=== PATIENT | female | born 1955 | race Caucasian/White ===

== ENCOUNTER 2016-07-27 07:02 | Inpatient (IN) ==
--- NOTE | 2016-07-26 20:50 | Discharge Summary ---
<Marva Gonzalez - Last Filed: 07/26/16 20:47> Date of Encounter: 07/26/16 - Discharge Diagnosis (1) Rotator cuff tear arthropathy of right shoulder Priority: Primary Status: Acute (2) DMII (diabetes mellitus, type 2) Status: Chronic Qualifiers: Diabetes mellitus complication status: with unspecified complications Diabetes mellitus senior care insulin use: unspecified roasterman insulin use status Qualified Code(s): E11.8 - Type 2 diabetes mellitus with unspecified complications (3) HTN (hypertension) Priority: Secondary Status: Chronic Qualifiers: Hypertension type: essential hypertension Qualified Code(s): I10 - Essential (primary) hypertension (4) 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 - Discharge Medications Home Medications: DiphenhydraMINE [Benadryl] 50 mg PO HS 01/25/15 [History] Ferrous Sulfate [Iron] 324 mg PO DAILY #0 01/25/15 [History] Furosemide [Lasix] 40 mg PO BID 01/25/15 [History] Insulin LISPRO [HumaLOG] 18 units SQ BID 01/25/15 [History] Insulin NPH Hum/Reg Insulin Hm [Novolin 70-30 100 Unit/ml Vial] 50 units SQ BID 01/25/15 [History] Losartan/Hydrochlorothiazide [Hyzaar 100-25 Tablet] 1 tab PO DAILY 01/25/15 [ History] Methocarbamol [Robaxin] 500 mg PO QID PRN #0 01/25/15 [History] Multivit-Min/FA/Ca Carb/Vit K [Women's 50+ Daily Tablet] 1 tab PO DAILY [History] Omeprazole [PriLOSEC] 20 mg PO DAILY 01/25/15 [History] SitaGLIPtin [Januvia] 100 mg PO DAILY 01/25/15 [History] Vitamin B Complex [B Complex] 1 tab PO DAILY 01/25/15 [History] Polyethylene Glycol 3350 [MiraLAX] 17 gm PO DAILY 04/13/16 [History] OxyCODONE Immed Rel [Roxicodone 5 MG] 5 - 10 mg PO Q6HR PRN #40 tablet 07/26/16 [Rx] Albuterol Sulfate [Proair Hfa] 2 puff IH Q4H PRN 07/27/16 [History] Atorvastatin Calcium [Lipitor] 80 mg PO DAILY 07/27/16 [History] Diclofenac Sodium [Voltaren] 1 appl TP QID PRN 07/27/16 [History] FLUoxetine HCl [Fluoxetine HCl] 80 mg PO HS 07/27/16 [History] Fluticasone Propionate Nasal [Flonase] 1 spray NS BID 07/27/16 [History] Lactulose [Enulose] 10 gm PO TID 07/27/16 [History] Montelukast [Singulair] 10 mg PO DAILY 07/27/16 [History] Promethazine HCl 12.5 - 25 mg PO Q8H PRN 07/27/16 [History] TraZODone 100 mg PO HS 07/27/16 [History] Tramadol HCl [Ultram] 50 mg PO QID PRN 07/27/16 [History] Allergies/Adverse Reactions: Allergies adhesive tape Allergy (Verified 01/07/16 08:59) Rash etodolac Allergy (Verified 04/13/16 11:44) Rash Primary care physician: Ritika Mensah CNP - Patient Status Disposition: Home, Self-Care Condition: Good - Discharge Instructions Follow Up With: Deo Paniagua MD [Partnered Physician] - 08/25/16 10:10 am Marva Gonzalez PAC [Physician Medical Transcription Supervisor] - 08/07/16 10:15 am Brittny Kumar MD [Partnered Physician] - 05/27/17 12:15 pm Ritika Mensah CNP [Primary Care Provider] - 11/17/16 11:20 am - Hospital Course Hospital course: Ms. 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 (3) DMII (diabetes mellitus, type 2) Priority: Secondary Status: Chronic Qualifiers: Diabetes mellitus complication status: with unspecified complications Diabetes mellitus roasterman insulin use: unspecified roasterman insulin use status Qualified Code(s): E11.8 - Type 2 diabetes mellitus with unspecified complications (4) Anemia Priority: Secondary Status: Chronic Qualifiers: Anemia type: unspecified type Qualified Code(s): D64.9 - Anemia, unspecified Primary care physician: Ritika Mensah CNP - Patient Status Functional capacity at discharge: independent ambulation Overall status at discharge: patient is progressing back to baseline - Hospital Course Hospital course: Ms. Krishnamurthy is a 60 year old female The patient had an uneventful postoperative course. They received antibiotics and physical therapy and were discharged in stable condition. There will follow -up in the office in 2 weeks. - Time Spent with Patient Total time spent providing and/or coordinating discharge services:
[2016-07-27] MEDS ORDERED: *HR* Midazolam HCl 2 MG/2 ML VIAL ONE (07:19)
[2016-07-27] MEDS ORDERED: *HR* FentaNYL (PF) 100 MCG/2 ML VIAL ONE (07:19)
[2016-07-27] MEDS ORDERED: *HR* Propofol 200 MG/20 ML VIAL IVP ONE (07:19)
[2016-07-27] MEDS ORDERED: Lidocaine -MPF 2% 2 ML VIAL ONE (07:20)
[2016-07-27] MEDS ORDERED: *HR* Succinylcholine 200 MG/10 ML VIAL IVP ONE (07:20)
[2016-07-27] MEDS ORDERED: Lidocaine 1% 20 ML MDV ID ONE (07:38)
[2016-07-27] MEDS ORDERED: CeFAZolin Pre 2,000 MG/100 ML 2,000 MG/100 ML BAG IVPB ONE (07:38)
[2016-07-27] MEDS ORDERED: Ringers Solution, Lactated 1,000 ML IVC SCH ×2 (07:45→11:24)
--- NOTE | 2016-07-27 07:45 | Anesthesia Evaluation PreOp ---
Date of Encounter: 07/27/16 Time of Encounter: 07:42 - Past History Planned Operation: left total shoulder replacement Cardiac History: HTN, Hyperlipidemia Pulmonary History: Denies Any Significant HX (non smoker) CARD BOXER History: Other (depression) Other Medical History: Diabetes Type II, Other (anemia, dysphaia. Patient denies any kidney problems.) Anesthesia History: No Prior Anesthetic Complications, Past Anesthesia (MOJGAN, appy, sinus surgery, c/s x2, Left shoulder scope, EGD with banding) : No Alcohol Use: none Drug use: none Medications and Allergies Celecoxib [Celebrex] 100 mg PO BID #0 01/25/15 [History] DiphenhydraMINE [Benadryl] 25 mg PO HS 01/25/15 [History] Duloxetine [Cymbalta] 60 mg PO HS 01/25/15 [History] Ferrous Sulfate [Iron] 325 mg PO DAILY #0 01/25/15 [History] Fluocinolone Acetonide Oil [Dermotic] 5 drop BOTH EARS BID #0 01/25/15 [History ] Furosemide [Lasix] 40 mg PO DAILY 01/25/15 [History] Gabapentin [Neurontin] 300 mg PO TID 01/25/15 [History] Insulin LISPRO [HumaLOG] 18 units SQ TIDWM 01/25/15 [History] Insulin NPH Hum/Reg Insulin Hm [Novolin 70-30 100 Unit/ml Vial] 55 units SQ BID 01/25/15 [History] Loratadine [Claritin] 10 mg PO DAILY 01/25/15 [History] Losartan/Hydrochlorothiazide [Hyzaar 100-25 Tablet] 1 tab PO DAILY 01/25/15 [ History] Metformin [Glucophage] 1,000 mg PO BIDWM 01/25/15 [History] Methocarbamol [Robaxin] 500 mg PO QID #0 01/25/15 [History] Multivit-Min/FA/Ca Carb/Vit K [Women's 50+ Daily Tablet] 1 tab PO DAILY [History] Omeprazole [PriLOSEC] 20 mg PO DAILY 01/25/15 [History] SitaGLIPtin [Januvia] 100 mg PO DAILY 01/25/15 [History] Vitamin B Complex [B Complex] 1 tab PO DAILY 01/25/15 [History] Polyethylene Glycol 3350 [MiraLAX] 17 gm PO DAILY 04/13/16 [History] OxyCODONE Immed Rel [Roxicodone 5 MG] 5 - 10 mg PO Q6HR PRN #40 tablet 07/26/16 [Rx] Allergies adhesive tape Allergy (Verified 01/07/16 08:59) Rash etodolac Allergy (Verified 04/13/16 11:44) Rash - Meds/Allergy Pre-op Review Medications Reviewed: Yes Allergies Reviewed: Yes Beta Blockers on Current Med List: No Anesthesia Results - Labs Laboratory Tests 07/20/16 07/20/16 07/20/16 12:12 12:12 12:12 Hgb 10.5 L Hct 32.2 L Plt Count 63 L PT 13.0 H APTT 32.2 Sodium 134 L Potassium 4.4 BUN 21 H Creatinine 0.85 Hemoglobin A1c 07/20/16 12:12 Hgb Hct Plt Count PT APTT Sodium Potassium BUN Creatinine Hemoglobin A1c 6.9 H - Imaging EKG: report reviewed (LAD, NSR) Additional studies: Negative stress test, EF 70% Anesthesia Exam Selected Entries 07/27/16 07:26 Temperature 98.0 F Pulse Rate 85 Respiratory Rate 18 Blood Pressure 137/76 O2 Sat by Pulse Oximetry 97 Height: 66in Weight: 216lbs NPO (# of Hours): 8 Pain Scale: 2 Pain Scale Used: Numeric (1 - 10) - HEENT Pupil (Motor): EOMI Mallampati: III Teeth: Poor dentition (some missing molars, overbite) Oral Opening: Greater than 3 - CARD BOXER LOC: Oriented CARD BOXER Motor: Normal RUE, Normal LUE, Normal RLE, Normal LLE, Normal Face CARD BOXER Sensory: Normal: RUE, LUE, RLE, LLE, Face - Cardiac Rhythm: Regular Murmur: None - Pulmonary Breath Sounds: bilateral Clear Respiratory Effort: Symmetrical Anesthesia Assess/Plan ASA Score: 2 Modified Orange Scale for Level of Consciousness: Cooperative, oriented, and tranquil Anesthetic Plan: General Monitoring Plan: Standard Monitors Recovery Plan: PACU (Discussed risks of GA and block, questions answered and agrees to proceed.)
--- NOTE | 2016-07-27 07:53 | History & Physical Report ---
Date of Encounter: 07/27/16 Time of Encounter: 07:53 24 Hour HP Update - Instructions Instructions: If the History and Physical is less than 30 days old and was completed prior to A.M. admission and or procedure and has NOT been updated on calendar day of procedure please complete this update prior to performing procedure. - Update Patient reports changes in Medical Condition: No Changes in assessment/condition: No Changes in Medication: No Preop tests/diagnostics Reviewed: Yes Surgery Remains Indicated: Yes Consent for Planned Operative Procedure(s) Verified: Yes - Pre-Operative Checklist Preoperative Checklist Indicated: No Prophylactic Antibiotic Ordered: Yes Is VTE Prophylaxis Indicated?: Yes
[2016-07-27] MEDS ORDERED: Albuterol 2.5 MG/3 ML NEBULIZER ONE (07:58)
[2016-07-27] MEDS ORDERED: Bupivacaine-MPF 0.25% 10 ML VIAL ONE (08:19)
--- NOTE | 2016-07-27 08:53 | Anesthesia Procedures ---
Date of Encounter: 07/27/16 Time of Encounter: 08:51 Procedures: Anesthesia - Nerve Block Procedure Date: 07/27/16 Time: 08:51 Allergies/Adv Reactions: adhesive tape Allergy (Verified 01/07/16 08:59) Rash etodolac Allergy (Verified 04/13/16 11:44) Rash Pre-op Diagnosis: right rotaotr cuff arthropathy Surgical Procedure: right shoulder reverse ball Checklist: Correct Patient Identifier, Correct procedure, History checked Correct side: Right Blood Thinner: No Monitor Applied: EKG, BP, Pulse Oximetry Supplemental Oxygen via Nasal Cannula (L/min): 2 Sedation: Versed (mg): 2 Sedation: Fentanyl (mcg): 100 Indication: Post Op Analgesia Pre-op Neuro Deficits: No Block Type: Supraclavicular Catheter placed: No Sterile Technique: Yes Ultrasound used: Yes Anatomy identified: Yes Visual spread of Local: Yes Neuro Stimulation: No Smooth Injection of Local: Yes Prep: Chlorhexadine Needle: 22 x 50 mm Stimuplex Local: Other (0.25% bupivicaine) Volume (cc): 30 Number of Attempts: 1 Complications: None/effective block Vitals: Vital Signs/O2 Sat, Most Current Temp Pulse Resp BP Pulse Ox 98.0 F 79 18 121/61 98 07/27/16 07:26 07/27/16 08:45 07/27/16 07:26 07/27/16 08:45 07/27/16 08:45 Comments: peripheral nerve block with ultrasound for postop pain per dr kee request
[2016-07-27] MEDS ORDERED: *HR* HYDROmorphone (PF) 1 MG/ML SYRINGE IVP PRN ×2 (08:54→11:24)
[2016-07-27] MEDS ORDERED: *HR* Labetalol 100 MG/20 ML MDV IVP PRN (08:54)
[2016-07-27] MEDS ORDERED: *HR* Phenylephrine 10 MG/ML VIAL ONE (09:11)
--- NOTE | 2016-07-27 09:41 | Orthopedic Operative Note ---
Date of procedure: 07/27/16 Pre-op diagnosis: Right cuff tear arthropathy Post-op diagnosis: same Procedure: Procedure: Right Total Shoulder Replacment Reverse, biceps tenodesis Estimated blood loss: 100 cc Hardware:Arthrex small glenoid baseplate, 2 4.5 screws. 1 6.5 screw, 36 lateral glenosphere, 6 humeral stem, poly insert 3 and 12 metal Exam Under anesthesia: Full motion no instability Procedural Notes: Irreparable tear supraspinatus tendon, grade 3 arthritic changes humeral head Operative procedure: The patient was brought to the operating room and placed on the operating room table. After general anesthesia was administered the operative shoulder was examined. Findings were noted. The patient was placed in the modified beachchair position. All pressure points were padded appropriately. And the head was stabilized in the neutral position. The operative extremity was prepped and draped in the sterile surgical fashion. The patient received IV antibiotics prior to skin incision. A standard deltopectoral approach was made to the operative shoulder. Incision was made to the skin and subcutaneous tissue,hemo stasis was obtained with Bovie cautery. Using careful blunt dissection the cephalic vein was identified and mobilized medially. The deltopectoral interval was developed and the clavipectoral fascia was incised. The subscap was released off the lesser tuberosity and tagged with #2 FiberWire suture. The humerus was dislocated patient noted to have irreparable tear supraspinatus tendon patient also noted to have grade 3 arthritic changes humeral head, and the humeral cut was made along the anatomic neck. Anterior and posterior Bankart retractors were placed to expose the glenoid. The glenoid guide was seated and the centering hole was made. It was reamed with the appropriate reamer. Small baseplate was seated and secured with (2) 4.5 screws and one 6.5 screw. The baseplate was irrigated and dried and the 36 lateral Glenosphere was seated and secured with the Rodriguez taper. The Rodriguez taper was tested and found to be secure the humerus was redislocated and prepared with the diaphyseal reamers, followed by a broaching process up to the appropriate size 6 in the patient's anatomic version. The metaphyseal reamer was then utilized. Trial reduction found the shoulder to be relocatable. Trial components were removed and drill holes were placed in the lesser tuberosity. They were filled with #5 FiberWire suture incorporating the biceps tendon. These sutures were used for a subscap repair and a biceps tenodesis. The appropriate 6 stem was impacted in place in the patient's anatomic version. Trial reduction found the shoulder to be relocatable and stable with the 12 metal 3 Eladia Trial component was removed and the 12 metal 3 Eladia was seated and secured the shoulder was reduced. The shoulder had excellent motion and excellent stability and no evidence of dislocation. The deep tissue was irrigated with pulse irrigation. The subscap was repaired incorporating the biceps tendon for biceps tenodesis and a subscap repair. The deltopectoral interval was closed with a running #1 PDS suture, subcutaneous tissue was irrigated and closed with 0 PDS suture, the skin was closed with Dermabond. The patient was placed in a sterile dressing, abduction brace and extubated. The patient was then transferred to the recovery room in stable condition. Anesthesia: ION Surgeon: Deo Paniagua Agile Qa Tester: Marva Gonzalez Condition: stable Disposition: PACU
[2016-07-27] MEDS ORDERED: *HR* Promethazine 25 MG/ML VIAL IVP PRN (10:28)
[2016-07-27 10:32] LABS: Hematocrit 32.6 % (35.3-44.9); Hemoglobin 10.3 g/dL (11.5-15.4)
--- NOTE | 2016-07-27 11:19 | Anesthesia Evaluation Post Op ---
Date of Encounter: 07/27/16 Time of Encounter: 10:59 - Vital Signs Vital Signs: vss - Lungs Lungs: Clear Ascult./Percussion - Airway Airway: Non-obstructed - Cardiovascular Baseline Rhythm - Mental Status Mental Status: Asleep with brisk response to light stimulation - Pain Pain Scale used: Lou (Faces) - Nausea Vomiting Nausea Vomiting: Not Present - Hydration Hydration: Ice chips - Discharge PostOp Status: Transfer Patient to floor
[2016-07-27] MEDS ORDERED: traMADol 50 MG TABLET PO PRN (11:24)
[2016-07-27] MEDS ORDERED: Dextrose Gel 15 GM PO PRN ×2 (11:24)
[2016-07-27] MEDS ORDERED: D5% in Water 1,000 ML IV PRN (11:24)
[2016-07-27] MEDS ORDERED: Sennosides 8.6 MG TABLET PO PRN (11:24)
[2016-07-27] MEDS ORDERED: Temazepam 15 MG CAPSULE PO PRN (11:24)
[2016-07-27] MEDS ORDERED: (Diclofenac Sodium [Voltaren] 1 APPL) TP PRN (11:24)
[2016-07-27] MEDS ORDERED: Naloxone 0.4 MG/ML INJ IVP PRN (11:24)
[2016-07-27] MEDS ORDERED: Methocarbamol 500 MG TABLET PO PRN (11:24)
[2016-07-27] MEDS ORDERED: *HR* Dextrose 50 % in Water (Syg) 50 ML SYRINGE IVP PRN (11:24)
[2016-07-27] MEDS ORDERED: MOM Conc 10 ML UD.LIQ PO PRN (11:24)
[2016-07-27] MEDS ORDERED: Ondansetron 4 MG/2 ML VIAL IVP PRN (11:24)
[2016-07-27] MEDS ORDERED: *HR* OxyCODONE Immed Rel 5 MG TABLET PO PRN (11:24)
[2016-07-27] MEDS: Insulin LISPRO 300 UNITS/3 ML VIAL SQ SCH ×2 (11:41→17:28)
[2016-07-27] MEDS: Acetaminophen 325 MG TABLET PO PRN (13:34)
[2016-07-27] MEDS: Lactulose Oral Soln 20 GM/30 ML UDC PO SCH ×2 (14:38→20:01)
[2016-07-27] MEDS: Furosemide 40 MG TABLET PO SCH (17:14)
[2016-07-27] MEDS: *HR* Enoxaparin 30 MG/0.3 ML SYRINGE SQ SCH (17:14)
[2016-07-27] MEDS: ceFAZolin 2,000 MG in D5% in Water 100 ML IVPB SCH (17:16)
[2016-07-27] MEDS ORDERED: *HR* Enoxaparin 30 MG/0.3 ML SYRINGE SQ SCH (18:00)
[2016-07-27] MEDS: Fluticasone Propionate Nasal 50 MCG/SPRAY BOTTLE NS SCH (20:10)
[2016-07-27] MEDS ORDERED: traZODone 50 MG TABLET PO SCH (21:00)
[2016-07-27] MEDS ORDERED: FLUoxetine 20 MG CAPSULE PO SCH (21:00)
[2016-07-28] MEDS: Insulin LISPRO 300 UNITS/3 ML VIAL SQ SCH ×4 (00:04→12:14)
[2016-07-28] MEDS: Insulin NPH/REG 70/30 100 UNIT/ML (x5UNIT) SQ SCH ×2 (00:04→11:05)
[2016-07-28] MEDS: ceFAZolin 2,000 MG in D5% in Water 100 ML IVPB SCH (00:05)
[2016-07-28] MEDS: *HR* OxyCODONE Immed Rel 5 MG TABLET PO PRN ×4 (02:24→14:37)
[2016-07-28 03:34] LABS: Hematocrit 29.1 % (35.3-44.9); Hemoglobin 9.4 g/dL (11.5-15.4)
[2016-07-28] MEDS: *HR* Enoxaparin 30 MG/0.3 ML SYRINGE SQ SCH (05:56)
--- NOTE | 2016-07-28 06:28 | Orthopedics Progress Note ---
Date of Encounter: 07/28/16 Time of Encounter: 06:28 - Assessment and Plan (1) Rotator cuff tear arthropathy of right shoulder Current Visit: Yes Status: Acute (2) Allergy to adhesive Current Visit: Yes Status: Chronic (3) DMII (diabetes mellitus, type 2) Current Visit: Yes Status: Chronic Qualifiers: Diabetes mellitus complication status: with unspecified complications Diabetes mellitus senior care insulin use: unspecified whiting machine operator insulin use status Qualified Code(s): E11.8 - Type 2 diabetes mellitus with unspecified complications (4) Anemia Current Visit: No Status: Chronic Qualifiers: Anemia type: unspecified type Qualified Code(s): D64.9 - Anemia, unspecified Subjective Interval history: Patient was seen this morning doing well without complaints. Afebrile vital signs stable. Operative extremity: Neurovascularly intact Dressing clean dry and intact Calves nontender Assessment and plan: Continue with postoperative care Hematocrit 29 discharged today Objective Vital signs: Vital Signs Temp Pulse Resp BP Pulse Ox 07/28/16 03:53 98.9 F 91 18 125/65 96 07/28/16 00:00 99.2 F 96 18 127/64 95 07/27/16 19:57 99.9 F H 91 19 132/69 93 L 07/27/16 17:49 16 99 07/27/16 15:50 97.9 F 81 16 132/77 99 07/27/16 15:06 76 15 117/68 96 07/27/16 14:15 98.0 F 76 15 117/68 96 07/27/16 13:41 98.6 F 80 16 128/68 99 07/27/16 13:15 98.7 F 80 16 127/70 99 07/27/16 12:15 98.1 F 82 14 132/62 97 07/27/16 11:45 98.2 F 84 14 121/66 94 L 07/27/16 11:14 98.0 F 84 14 106/64 93 L 07/27/16 10:56 98.8 F 82 16 115/62 95 07/27/16 10:46 82 16 119/61 95 07/27/16 10:36 82 20 119/60 94 L 07/27/16 10:26 98.6 F 83 20 110/62 94 L 07/27/16 10:16 83 20 123/64 99 07/27/16 10:06 84 20 126/69 99 07/27/16 09:56 98.6 F 92 20 158/71 96 07/27/16 08:45 79 121/61 98 07/27/16 08:35 80 129/69 99 07/27/16 07:26 98.0 F 85 18 137/76 97 Intake and Output 07/27/16 07/27/16 07/28/16 15:59 23:59 07:59 Intake Total 100 / 100 100 / 100 1100 / 1100 Output Total 4952 / 4952 400 / 400 500 / 500 Balance -4852 / -4852 -300 / -300 600 / 600 Intake: IV Fluids 100 / 100 100 / 100 1100 / 1100 Lactated Ringers 1,000 ML 1000 / 1000 @ 75 mls/hr IVC .[id number] JOSI Rx#:[id number] Ancef 2,000 MG In 100 / 100 100 / 100 Dextrose 5% 100 ML @ 200 mls/hr IVPB Q8H JOSI Rx#: [id number] Ancef Premix 2,000 MG/100 100 / 100 ML 2,000 mg In 100 ml @ 200 mls/hr IVPB PREOP ONE Rx#:[id number] Oral 0 / 0 Output: Urine 4852 / 4852 400 / 400 500 / 500 Estimated Blood Loss 100 / 100 Other: Stool Size Small Stool Consistency formed Stool Color Brown # Voids 1 Blood Glucose* 183 274 - Labs CBC & BMP: 07/28/16 03:13 Labs: Abnormal lab results Hgb 9.4 g/dL (11.5-15.4) L 07/28/16 03:13 Hct 29.1 % (35.3-44.9) L 07/28/16 03:13 POC Glucose 183 (58-89) H 07/27/16 11:29 - VTE Documentation of Mechanical Device: Venous foot pump, device Consult Discharge Plan - Plan Referrals: Deo Paniagua MD [Partnered Physician] - 08/25/16 10:10 am Marva Gonzalez, PAC [Physician Development Executive] - 08/07/16 10:15 am Brittny Kumar MD [Partnered Physician] - 05/27/17 12:15 pm Ritika Mensah, [employer] TE[employer]ER [Primary Care Provider] - 11/17/16 11:20 am
[2016-07-28] MEDS: Furosemide 40 MG TABLET PO SCH (08:49)
[2016-07-28] MEDS: Lactulose Oral Soln 20 GM/30 ML UDC PO SCH ×2 (08:49→14:37)
[2016-07-28] MEDS: Fluticasone Propionate Nasal 50 MCG/SPRAY BOTTLE NS SCH (08:51)
[2016-07-28] MEDS ORDERED: *HR* SitaGLIPtin 100 MG TABLET PO SCH (09:00)
[2016-07-28] MEDS ORDERED: Vitamin B Complex/Vit C/Vit E 1 EACH TABLET PO SCH (09:00)
[2016-07-28] MEDS ORDERED: Losartan/HCTZ 50-12.5 TABLET PO SCH (09:00)
[2016-07-28] MEDS ORDERED: Multivit/Ca/Min/Fe/FA 1 TAB TABLET PO SCH (09:00)
[2016-07-28] MEDS: Acetaminophen 325 MG TABLET PO PRN (10:43)
[2016-07-28 15:46] VITALS: BP 126/71
== END 2016-07-28 16:14 | disposition home or self-care (01) | DRG 483 ==
LOC: SAMDAY 07:02 → 3NENU 10:59
PROVIDERS: ADMIT Orthopaedic Surgery; ATTEND Orthopaedic Surgery

== ENCOUNTER 2020-01-21 14:36 | Inpatient (IN) ==
[2020-01-21 15:20] LABS: Basophils % 0.1 %; Eosinophils % 0.1 %; Hematocrit 33.7 % (35.3-44.9); Immature Granulocytes % 0.4 % (0-4); Lymphocytes # 0.4 K/mcL (0.6-4.6); Lymphocytes % 3.6 %; Mean Corpuscular HGB Conc 32.6 g/dL (31.6-35.5); Mean Corpuscular Hemoglobin 27.9 pg (28.0-33.3); Mean Platelet Volume 11.1 fL (9.4-12.4); Monocytes # 0.7 K/mcL (0.0-1.3); Neutrophils # 8.9 K/mcL (1.6-8.9); Platelet Count 147 K/mcL (140-400); Red Blood Count 3.94 M/mcL (3.82-4.97); Red Cell Distribution Width 14.7 % (11.5-14.5); Segmented Neutrophils % 88.8 %
[2020-01-21 15:21] LABS: Mean Corpuscular Volume 85.5 fL (83.0-100.0)
[2020-01-21] MEDS ORDERED: Ondansetron 4 MG/2 ML VIAL IVP ONE (15:26)
[2020-01-21 15:37] LABS: INR 1.3; Prothrombin Time 14.9 Seconds (9.4-12.1)
[2020-01-21 15:47] LABS: Alanine Aminotransferase 15 Units/L (7-52); Albumin 3.7 g/dL (3.5-5.7); Albumin/Globulin Ratio 1.3 (1.1-2.2); Alkaline Phosphatase 109 Units/L (34-104); Aspartate Amino Transferase 24 Units/L (13-39); BUN/Creatinine Ratio 45 (6-26); Bilirubin,Direct 0.6 mg/dL (0.0-0.2); Bilirubin,Indirect 1.1 mg/dL (0.0-1.0); Bilirubin,Total 1.7 mg/dL (0.3-1.0); Blood Urea Nitrogen 41 mg/dL (8-23); Calcium 9.4 mg/dL (8.6-10.3); Carbon Dioxide 20 mEq/L (23-29); Chloride 101 mEq/L (98-107); Globulin 2.9 g/dL (2.4-3.5); Glucose 285 mg/dL (70-105); Lipase 159 Units/L (11-82); Osmolality,Calculated 296 (280-300); Potassium 4.7 mEq/L (3.5-5.1); Sodium 133 mEq/L (136-145); Total Protein 6.6 g/dL (6.4-8.9); Troponin I 0.36 ng/mL (< 0.04); eGFR For African Americans > 60 (> 60); eGFR For Non-African Americans > 60 (> 60)
[2020-01-21 16:06] LABS: Bacteria,Urine Few per hpf (None-Few); Bilirubin,Urine Negative (Negative); Blood,Urine Small (Negative); Clarity,Urine Turbid (Clear); Color,Urine Yellow (Yellow); Glucose,Urine (UA) Normal (Normal); Hyaline Casts,Urine Few per lpf (None Seen); Ketones,Urine Negative (Negative); Leukocyte Esterase,Urine Small (Negative); Mucus,Urine Few per lpf (None-Few); Nitrite,Urine Negative (Negative); PH,Urine 6.5 pH Units (5.0-8.0); Protein,Urine 200 mg/dL (Neg-Trace); RBC,Urine 0-3 per hpf (0-3); Specific Gravity,Urine 1.021 (1.010-1.025); Squamous Epithelial Cell,Urine Few per hpf (None-Few)
[2020-01-21] MEDS ORDERED: Aspirin 325 MG TABLET PO ONE (16:54)
[2020-01-21] MEDS ORDERED: Piperacillin/Tazobactam 3.375 GM in Water for inj. (sterile) 20 ML IVP ONE (16:54)
[2020-01-21] MEDS ORDERED: Naloxone 0.4 MG/ML INJ IVP PRN (17:09)
[2020-01-21] MEDS ORDERED: Isovue-370 500 ML BOTTLE IVP ONE (17:14)
[2020-01-21] MEDS ORDERED: Perflutren Lipid Microsphere 1.3 ML in 0.9 % Sodium Chloride 8.7 ML IVP PRN (17:15)
[2020-01-21] MEDS ORDERED: Piperacillin/Tazobactam 3.375 GM in 0.9 % Sodium Chloride Mini Bag 100 ML IVP ONE (18:40)
[2020-01-21] MEDS: Lactulose Oral Soln 20 GM/30 ML UDC PO SCH (20:43)
[2020-01-21] MEDS ORDERED: Dextrose Gel 15 GM/37.5 ML TUBE PO PRN ×2 (21:23)
[2020-01-21] MEDS ORDERED: *HR* Dextrose 50 % in Water (Vial) 50 ML VIAL IVP PRN (21:23)
[2020-01-21] MEDS ORDERED: D5% in Water 1,000 ML IVC PRN (21:23)
[2020-01-21] MEDS ORDERED: *HR* Heparin 5,000 UNIT/ML VIAL IVP PRN (21:25)
[2020-01-21] MEDS ORDERED: *HR* Heparin 5,000 UNIT/ML VIAL IVP ONE (21:25)
[2020-01-21] MEDS: Insulin LISPRO 300 UNITS/3 ML VIAL SQ SCH (23:03)
[2020-01-21] MEDS: Heparin 25,000UNIT/250ML 1/2NS 25,000 UNIT/250 ML IV.SOLN IVC SCH (23:03)
[2020-01-21] MEDS: Acetaminophen 325 MG TABLET PO PRN (23:09)
[2020-01-22 04:46] LABS: Basophils % 0.1 %; Eosinophils % 0.1 %; Hematocrit 30.2 % (35.3-44.9); Hemoglobin 9.6 g/dL (11.5-15.4); Immature Granulocytes % 0.5 % (0-4); Lymphocytes # 0.5 K/mcL (0.6-4.6); Lymphocytes % 4.8 %; Mean Corpuscular HGB Conc 31.8 g/dL (31.6-35.5); Mean Corpuscular Hemoglobin 27.2 pg (28.0-33.3); Mean Corpuscular Volume 85.6 fL (83.0-100.0); Mean Platelet Volume 11.1 fL (9.4-12.4); Monocytes % 10.3 %; Neutrophils # 8.2 K/mcL (1.6-8.9); Platelet Count 138 K/mcL (140-400); Red Blood Count 3.53 M/mcL (3.82-4.97); Red Cell Distribution Width 14.8 % (11.5-14.5); Segmented Neutrophils % 84.2 %; White Blood Count 9.8 K/mcL (4.3-11.1)
[2020-01-22 05:04] LABS: BUN/Creatinine Ratio 38 (6-26); Blood Urea Nitrogen 33 mg/dL (8-23); Calcium 8.8 mg/dL (8.6-10.3); Carbon Dioxide 20 mEq/L (23-29); Chloride 105 mEq/L (98-107); Glucose 209 mg/dL (70-105); Osmolality,Calculated 293 (280-300); Potassium 4.5 mEq/L (3.5-5.1); Sodium 135 mEq/L (136-145); eGFR For African Americans > 60 (> 60); eGFR For Non-African Americans > 60 (> 60)
[2020-01-22 07:52] LABS: Estimated Average Glucose 134 mg/dl
[2020-01-22] MEDS: Lactulose Oral Soln 20 GM/30 ML UDC PO SCH ×2 (08:01→23:49)
[2020-01-22] MEDS: cefTRIAXone 1,000 MG in Water for inj. (sterile) 10 ML IVP SCH (08:01)
[2020-01-22] MEDS: Aspirin Enteric Coated 81 MG Tablet PO SCH (08:01)
[2020-01-22] MEDS: Insulin LISPRO 300 UNITS/3 ML VIAL SQ SCH ×4 (08:23→23:49)
[2020-01-22] MEDS: *HR* Heparin 5,000 UNIT/ML VIAL IVP PRN (11:52)
[2020-01-22] MEDS: Heparin 25,000UNIT/250ML 1/2NS 25,000 UNIT/250 ML IV.SOLN IVC SCH (18:39)
[2020-01-22] MEDS: Acetaminophen 325 MG TABLET PO PRN (23:49)
[2020-01-23] MEDS: *HR* Heparin 5,000 UNIT/ML VIAL IVP PRN (00:42)
[2020-01-23 00:52] LABS: Basophils % 0.1 %; Hematocrit 28.8 % (35.3-44.9); Hemoglobin 9.1 g/dL (11.5-15.4); Immature Granulocytes % 0.8 % (0-4); Lymphocytes # 0.5 K/mcL (0.6-4.6); Lymphocytes % 4.5 %; Mean Corpuscular HGB Conc 31.6 g/dL (31.6-35.5); Mean Corpuscular Hemoglobin 27.3 pg (28.0-33.3); Mean Corpuscular Volume 86.5 fL (83.0-100.0); Mean Platelet Volume 11.1 fL (9.4-12.4); Monocytes # 1.2 K/mcL (0.0-1.3); Neutrophils # 8.5 K/mcL (1.6-8.9); Platelet Count 131 K/mcL (140-400); Red Blood Count 3.33 M/mcL (3.82-4.97); Red Cell Distribution Width 15.2 % (11.5-14.5); Segmented Neutrophils % 82.6 %; White Blood Count 10.3 K/mcL (4.3-11.1)
[2020-01-23 01:11] LABS: BUN/Creatinine Ratio 40 (6-26); Blood Urea Nitrogen 40 mg/dL (8-23); Calcium 8.6 mg/dL (8.6-10.3); Carbon Dioxide 19 mEq/L (23-29); Chloride 103 mEq/L (98-107); Glucose 304 mg/dL (70-105); Osmolality,Calculated 297 (280-300); Potassium 4.7 mEq/L (3.5-5.1); Sodium 133 mEq/L (136-145); eGFR For African Americans > 60 (> 60); eGFR For Non-African Americans 55 (> 60)
[2020-01-23] MEDS: Vancomycin 1,250 MG/262.5 ML IV.SOLN IVPB SCH (01:55)
[2020-01-23] MEDS: Lactulose Oral Soln 20 GM/30 ML UDC PO SCH ×2 (08:07→20:05)
[2020-01-23] MEDS: Aspirin Enteric Coated 81 MG Tablet PO SCH (08:11)
[2020-01-23] MEDS: Insulin LISPRO 300 UNITS/3 ML VIAL SQ SCH ×3 (08:11→16:11)
[2020-01-23] MEDS: cefTRIAXone 1,000 MG in Water for inj. (sterile) 10 ML IVP SCH (08:11)
[2020-01-23] MEDS: Ondansetron ODT 4 MG TAB.RAPDIS SL PRN ×2 (11:41→20:01)
[2020-01-23 12:11] LABS: Acinetobacter baumannii by PCR Not Detected (Not Detect); Candida albicans by PCR Not Detected (Not Detect); Candida glabrata by PCR Not Detected (Not Detect); Candida krusei by PCR Not Detected (Not Detect); Candida parapsilosis by PCR Not Detected (Not Detect); Candida tropicalis by PCR Not Detected (Not Detect); Enterobacter cloacae Cmplx PCR Not Detected (Not Detect); Enterobacteriaceae by PCR Not Detected (Not Detect); Enterococcus by PCR Not Detected (Not Detect); Escherichia coli by PCR Not Detected (Not Detect); Klebsiella oxytoca by PCR Not Detected (Not Detect); Klebsiella pneumoniae by PCR Not Detected (Not Detect); Proteus by PCR Not Detected (Not Detect); Pseudomonas aeruginosa by PCR Not Detected (Not Detect); Serratia marcescens by PCR Not Detected (Not Detect); Staphylococcus aureus by PCR Not Detected (Not Detect); Staphylococcus by PCR Not Detected (Not Detect); Streptococcus agalactiae(B)PCR Not Detected (Not Detect); Streptococcus by PCR Not Detected (Not Detect); Streptococcus pneumoniae PCR Not Detected (Not Detect); Streptococcus pyogenes (A) PCR Not Detected (Not Detect)
[2020-01-23] MEDS ORDERED: Insulin LISPRO 300 UNITS/3 ML VIAL SQ STA (13:16)
[2020-01-23] MEDS: Heparin 25,000UNIT/250ML 1/2NS 25,000 UNIT/250 ML IV.SOLN IVC SCH (13:26)
[2020-01-23] MEDS ORDERED: Insulin LISPRO 300 UNITS/3 ML VIAL SQ SCH (13:34)
[2020-01-23] MEDS ORDERED: Insulin DETEMIR 100 UNIT/ML X5UNITS SQ ONE (13:34)
[2020-01-23] MEDS ORDERED: *HR* Midazolam HCl 5 MG/5 ML VIAL IVP PRN (14:08)
[2020-01-23] MEDS ORDERED: *HR* FentaNYL (PF) 100 MCG/2 ML VIAL IVP PRN (14:08)
[2020-01-23] MEDS ORDERED: Lidocaine Viscous Oral Soln 15 ML SOLUTION MM PRN (14:08)
[2020-01-23] MEDS ORDERED: 0.9 % Sodium Chloride 500 ML IVC ONE (14:08)
[2020-01-23] MEDS ORDERED: Insulin Human Regular 10 UNIT in 0.9 % Sodium Chloride 10 ML IV ONE (17:23)
[2020-01-23] MEDS ORDERED: LACTULOSE PO PRN (17:26)
[2020-01-23 18:07] LABS: VBG HCO3 22 mEq/L (21-27); VBG PCO2 39 mmHg (41-51); VBG PH 7.35 pH Units (7.32-7.42); VBG PO2 87 mmHg (25-50)
[2020-01-23 18:30] LABS: BUN/Creatinine Ratio 64 (6-26); Blood Urea Nitrogen 64 mg/dL (8-23); Calcium 8.6 mg/dL (8.6-10.3); Carbon Dioxide 19 mEq/L (23-29); Chloride 102 mEq/L (98-107); Glucose 381 mg/dL (70-105); Osmolality,Calculated 304 (280-300); Potassium 4.7 mEq/L (3.5-5.1); Sodium 130 mEq/L (136-145); eGFR For African Americans > 60 (> 60); eGFR For Non-African Americans 55 (> 60)
[2020-01-23] MEDS: Furosemide 40 MG TABLET PO SCH (18:45)
[2020-01-23] MEDS ORDERED: Insulin LISPRO 300 UNITS/3 ML VIAL SQ ONE (19:29)
[2020-01-23] MEDS: 0.9 % Sodium Chloride 1,000 ML IVC SCH (20:03)
[2020-01-23] MEDS: traZODone 50 MG TABLET PO SCH (20:04)
[2020-01-23] MEDS: Insulin DETEMIR 100 UNIT/ML X5UNITS SQ SCH (20:05)
[2020-01-24] MEDS: Simethicone 80 MG TAB.CHEW PO PRN (02:58)
[2020-01-24] MEDS: Vancomycin 1,250 MG/262.5 ML IV.SOLN IVPB SCH (02:59)
[2020-01-24] MEDS: Ondansetron ODT 4 MG TAB.RAPDIS SL PRN ×2 (04:27→12:32)
[2020-01-24 06:35] LABS: Calcium 7.9 mg/dL (8.6-10.3); Potassium 4.1 mEq/L (3.5-5.1)
[2020-01-24 06:45] LABS: Hematocrit 20.3 % (35.3-44.9); Hemoglobin 6.4 g/dL (11.5-15.4); Mean Corpuscular HGB Conc 31.5 g/dL (31.6-35.5); Mean Corpuscular Hemoglobin 27.2 pg (28.0-33.3); Mean Corpuscular Volume 86.4 fL (83.0-100.0); Mean Platelet Volume 10.7 fL (9.4-12.4); Platelet Count 130 K/mcL (140-400); Red Blood Count 2.35 M/mcL (3.82-4.97); Red Cell Distribution Width 15.4 % (11.5-14.5)
[2020-01-24] MEDS ORDERED: Insulin LISPRO 300 UNITS/3 ML VIAL SQ SCH (08:00)
[2020-01-24] MEDS ORDERED: 0.9 % Sodium Chloride 250 ML IVC SCH (08:45)
[2020-01-24] MEDS: Acetaminophen 325 MG TABLET PO PRN (08:47)
[2020-01-24] MEDS: Lactulose Oral Soln 20 GM/30 ML UDC PO SCH ×2 (08:47→22:51)
[2020-01-24] MEDS: Furosemide 40 MG TABLET PO SCH ×2 (08:48→17:23)
[2020-01-24] MEDS: FLUoxetine 20 MG CAPSULE PO SCH (08:48)
[2020-01-24] MEDS: Aspirin Enteric Coated 81 MG Tablet PO SCH (08:49)
[2020-01-24] MEDS: cefTRIAXone 1,000 MG in Water for inj. (sterile) 10 ML IVP SCH (08:49)
[2020-01-24] MEDS: Loratadine 10 MG TABLET PO SCH (08:49)
[2020-01-24] MEDS: Insulin LISPRO 300 UNITS/3 ML VIAL SQ SCH ×4 (08:50→18:33)
[2020-01-24 09:06] LABS: Basophils % 0.1 %; Eosinophils % 0.1 %; Hematocrit 20.6 % (35.3-44.9); Hemoglobin 6.8 g/dL (11.5-15.4); Immature Granulocytes % 1.1 % (0-4); Lymphocytes % 7.2 %; Mean Corpuscular Hemoglobin 28.6 pg (28.0-33.3); Mean Corpuscular Volume 86.6 fL (83.0-100.0); Mean Platelet Volume 11.3 fL (9.4-12.4); Monocytes # 1.4 K/mcL (0.0-1.3); Monocytes % 10.3 %; Neutrophils # 11.4 K/mcL (1.6-8.9); Nucleated Red Blood Cells 0.1 /100 WBC (0); Platelet Count 133 K/mcL (140-400); Red Blood Count 2.38 M/mcL (3.82-4.97); Red Cell Distribution Width 15.4 % (11.5-14.5); Segmented Neutrophils % 81.2 %
[2020-01-24] MEDS: Fluticasone Propionate Nasal 50 MCG/SPRAY BOTTLE NS SCH (09:06)
[2020-01-24] MEDS ORDERED: 0.9 % Sodium Chloride 250 ML ONE (09:44)
[2020-01-24] MEDS: 0.9 % Sodium Chloride 1,000 ML IVC SCH ×3 (10:55→17:33)
[2020-01-24] MEDS ORDERED: Pantoprazole 40 MG VIAL IVP ONE (11:33)
[2020-01-24] MEDS: Octreotide 400 MCG in 0.9 % Sodium Chloride 100 ML IVC SCH ×2 (12:36→22:51)
[2020-01-24 12:54] LABS: Basophils % 0.1 %; Eosinophils % 0.1 %; Hematocrit 22.7 % (35.3-44.9); Hemoglobin 7.3 g/dL (11.5-15.4); Lymphocytes # 0.7 K/mcL (0.6-4.6); Lymphocytes % 6.2 %; Mean Corpuscular HGB Conc 32.2 g/dL (31.6-35.5); Mean Corpuscular Hemoglobin 28.5 pg (28.0-33.3); Mean Corpuscular Volume 88.7 fL (83.0-100.0); Monocytes # 1.2 K/mcL (0.0-1.3); Monocytes % 10.7 %; Neutrophils # 9.4 K/mcL (1.6-8.9); Platelet Count 120 K/mcL (140-400); Red Blood Count 2.56 M/mcL (3.82-4.97); Red Cell Distribution Width 15.1 % (11.5-14.5); Segmented Neutrophils % 81.9 %; White Blood Count 11.5 K/mcL (4.3-11.1)
[2020-01-24] MEDS: Pantoprazole 40 MG VIAL IVP SCH (17:23)
[2020-01-24 19:13] LABS: Basophils % 0.2 %; Eosinophils % 0.1 %; Hematocrit 26.7 % (35.3-44.9); Hemoglobin 8.7 g/dL (11.5-15.4); Immature Granulocytes % 1.3 % (0-4); Lymphocytes # 0.8 K/mcL (0.6-4.6); Lymphocytes % 5.5 %; Mean Corpuscular HGB Conc 32.6 g/dL (31.6-35.5); Mean Corpuscular Hemoglobin 28.6 pg (28.0-33.3); Mean Corpuscular Volume 87.8 fL (83.0-100.0); Mean Platelet Volume 11.6 fL (9.4-12.4); Monocytes # 1.2 K/mcL (0.0-1.3); Monocytes % 8.4 %; Neutrophils # 11.7 K/mcL (1.6-8.9); Nucleated Red Blood Cells 0.1 /100 WBC (0); Platelet Count 130 K/mcL (140-400); Red Blood Count 3.04 M/mcL (3.82-4.97); Red Cell Distribution Width 15.2 % (11.5-14.5); Segmented Neutrophils % 84.5 %; White Blood Count 13.9 K/mcL (4.3-11.1)
[2020-01-24] MEDS: traZODone 50 MG TABLET PO SCH (20:54)
[2020-01-24] MEDS: Insulin DETEMIR 100 UNIT/ML X5UNITS SQ SCH (20:54)
[2020-01-25] MEDS: Insulin LISPRO 300 UNITS/3 ML VIAL SQ SCH ×4 (00:40→17:23)
[2020-01-25] MEDS ORDERED: Vancomycin 1,500 MG/265 ML IV.SOLN IVPB SCH (03:00)
[2020-01-25] MEDS: 0.9 % Sodium Chloride 1,000 ML IVC SCH ×3 (03:15→20:09)
[2020-01-25] MEDS: Pantoprazole 40 MG VIAL IVP SCH (05:37)
[2020-01-25] MEDS: Octreotide 400 MCG in 0.9 % Sodium Chloride 100 ML IVC SCH (05:44)
[2020-01-25 07:15] LABS: Basophils % 0.1 %
[2020-01-25 07:17] LABS: Eosinophils % 0.1 %; Hematocrit 25.5 % (35.3-44.9); Immature Granulocytes % 1.7 % (0-4); Immature Platelets 5.7 % (1.1-6.1); Lymphocytes # 0.5 K/mcL (0.6-4.6); Lymphocytes % 5.5 %; Mean Corpuscular HGB Conc 31.4 g/dL (31.6-35.5); Mean Corpuscular Volume 89.2 fL (83.0-100.0); Mean Platelet Volume 11.5 fL (9.4-12.4); Monocytes # 0.7 K/mcL (0.0-1.3); Monocytes % 7.2 %; Neutrophils # 8.2 K/mcL (1.6-8.9); Platelet Count 106 K/mcL (140-400); Red Blood Count 2.86 M/mcL (3.82-4.97); Red Cell Distribution Width 15.4 % (11.5-14.5); Segmented Neutrophils % 85.4 %; White Blood Count 9.6 K/mcL (4.3-11.1)
[2020-01-25 07:34] LABS: Potassium 4.4 mEq/L (3.5-5.1)
[2020-01-25] MEDS ORDERED: Erythromycin Lactobionate 250 MG in 0.9 % Sodium Chloride 100 ML IVPB ONE (08:00)
[2020-01-25] MEDS: Loratadine 10 MG TABLET PO SCH (08:44)
[2020-01-25] MEDS: Furosemide 40 MG TABLET PO SCH ×2 (08:44→17:22)
[2020-01-25] MEDS: FLUoxetine 20 MG CAPSULE PO SCH (08:44)
[2020-01-25] MEDS: Aspirin Enteric Coated 81 MG Tablet PO SCH (08:44)
[2020-01-25] MEDS: Lactulose Oral Soln 20 GM/30 ML UDC PO SCH ×2 (08:45→20:09)
[2020-01-25] MEDS: Fluticasone Propionate Nasal 50 MCG/SPRAY BOTTLE NS SCH (09:43)
[2020-01-25] MEDS ORDERED: *HR* Propofol 500 MG/50 ML BOTTLE IVP ONE (10:55)
[2020-01-25] MEDS ORDERED: Lidocaine -MPF 2% 5 ML VIAL SQ ONE (10:55)
[2020-01-25 11:45] LABS: Homocysteine 13 umol/L (<=10)
[2020-01-25 12:04] LABS: ANA IgG by ELISA NONE DETECTED (None Detected)
[2020-01-25] MEDS: lisinopriL 5 MG TABLET PO SCH (12:54)
[2020-01-25] MEDS: Isosorbide MONOnitrate (24 HR) 30 MG TAB.ER.24H PO SCH (12:54)
[2020-01-25] MEDS: Fluconazole 100 MG TABLET PO SCH (13:03)
[2020-01-25] MEDS: Amoxicillin 500 MG CAPSULE PO SCH (20:08)
[2020-01-25] MEDS: traZODone 50 MG TABLET PO SCH (20:09)
[2020-01-25] MEDS: Acetaminophen 325 MG TABLET PO PRN (20:13)
[2020-01-25] MEDS: Insulin DETEMIR 100 UNIT/ML X5UNITS SQ SCH (23:35)
[2020-01-26] MEDS: Insulin LISPRO 300 UNITS/3 ML VIAL SQ SCH ×5 (02:11→22:50)
[2020-01-26] MEDS: 0.9 % Sodium Chloride 1,000 ML IVC SCH (06:22)
[2020-01-26] MEDS: Isosorbide MONOnitrate (24 HR) 30 MG TAB.ER.24H PO SCH (07:22)
[2020-01-26] MEDS: Aspirin Enteric Coated 81 MG Tablet PO SCH (07:22)
[2020-01-26] MEDS: Fluconazole 100 MG TABLET PO SCH (07:22)
[2020-01-26] MEDS: Amoxicillin 500 MG CAPSULE PO SCH ×3 (07:22→22:49)
[2020-01-26] MEDS: Loratadine 10 MG TABLET PO SCH (07:22)
[2020-01-26] MEDS: FLUoxetine 20 MG CAPSULE PO SCH (07:22)
[2020-01-26] MEDS: Lactulose Oral Soln 20 GM/30 ML UDC PO SCH ×2 (07:23→22:50)
[2020-01-26] MEDS: Fluticasone Propionate Nasal 50 MCG/SPRAY BOTTLE NS SCH (07:24)
[2020-01-26] MEDS ORDERED: Pantoprazole 40 MG VIAL IVP SCH (09:00)
[2020-01-26 09:10] LABS: Basophils % 0.2 %; Eosinophils # 0.1 K/mcL (0.0-0.6); Eosinophils % 0.5 %; Hematocrit 28.2 % (35.3-44.9); Hemoglobin 8.7 g/dL (11.5-15.4); Immature Granulocytes % 1.5 % (0-4); Lymphocytes # 0.7 K/mcL (0.6-4.6); Lymphocytes % 6.8 %; Mean Corpuscular HGB Conc 30.9 g/dL (31.6-35.5); Mean Corpuscular Hemoglobin 28.2 pg (28.0-33.3); Mean Corpuscular Volume 91.6 fL (83.0-100.0); Mean Platelet Volume 11.3 fL (9.4-12.4); Monocytes # 0.8 K/mcL (0.0-1.3); Monocytes % 7.4 %; Neutrophils # 8.4 K/mcL (1.6-8.9); Platelet Count 143 K/mcL (140-400); Red Blood Count 3.08 M/mcL (3.82-4.97); Red Cell Distribution Width 16.1 % (11.5-14.5); Segmented Neutrophils % 83.6 %; White Blood Count 10.1 K/mcL (4.3-11.1)
[2020-01-26 09:55] LABS: Calcium 7.9 mg/dL (8.6-10.3); Potassium 4.1 mEq/L (3.5-5.1)
[2020-01-26] MEDS: Sodium Bicarbonate 75 MEQ in 0.45 % Sodium Chloride 1,000 ML IVC SCH (12:38)
[2020-01-26 14:21] LABS: Bilirubin,Urine Negative (Negative); Blood,Urine Negative (Negative); Clarity,Urine Clear (Clear); Color,Urine Light-Yellow (Yellow); Glucose,Urine (UA) Normal (Normal); Ketones,Urine Negative (Negative); Leukocyte Esterase,Urine Trace (Negative); Mucus,Urine Few per lpf (None-Few); Nitrite,Urine Negative (Negative); Protein,Urine Negative (Neg-Trace); RBC,Urine 0-3 per hpf (0-3); Specific Gravity,Urine 1.017 (1.010-1.025); Squamous Epithelial Cell,Urine Moderate per hpf (None-Few); Urobilinogen,Urine Normal (Normal); WBC,Urine 0-3 per hpf (0-3)
[2020-01-26 14:30] LABS: Protein/Creatinine Ratio,Urine 0.16 mg/mg (0.00-0.20); Sodium, Urine 27.3 mEq/L
[2020-01-26] MEDS: Vancomycin 1,500 MG/265 ML IV.SOLN IVPB SCH (16:06)
[2020-01-26] MEDS: traZODone 50 MG TABLET PO SCH (22:50)
[2020-01-26] MEDS: Ondansetron ODT 4 MG TAB.RAPDIS SL PRN (23:14)
[2020-01-26] MEDS: Insulin DETEMIR 100 UNIT/ML X5UNITS SQ SCH (23:14)
[2020-01-27] MEDS: Sodium Bicarbonate 75 MEQ in 0.45 % Sodium Chloride 1,000 ML IVC SCH ×4 (01:11→18:51)
[2020-01-27 04:37] LABS: Basophils % 0.1 %; Eosinophils # 0.1 K/mcL (0.0-0.6); Hemoglobin 7.8 g/dL (11.5-15.4); Immature Granulocytes % 1.2 % (0-4); Lymphocytes # 0.5 K/mcL (0.6-4.6); Lymphocytes % 7.2 %; Mean Corpuscular HGB Conc 31.2 g/dL (31.6-35.5); Mean Corpuscular Hemoglobin 28.2 pg (28.0-33.3); Mean Corpuscular Volume 90.3 fL (83.0-100.0); Mean Platelet Volume 11.7 fL (9.4-12.4); Monocytes # 0.8 K/mcL (0.0-1.3); Monocytes % 11.5 %; Neutrophils # 5.8 K/mcL (1.6-8.9); Platelet Count 111 K/mcL (140-400); Red Blood Count 2.77 M/mcL (3.82-4.97); Red Cell Distribution Width 16.3 % (11.5-14.5); White Blood Count 7.3 K/mcL (4.3-11.1)
[2020-01-27 04:56] LABS: BUN/Creatinine Ratio 50 (6-26); Blood Urea Nitrogen 50 mg/dL (8-23); Calcium 7.3 mg/dL (8.6-10.3); Carbon Dioxide 19 mEq/L (23-29); Chloride 111 mEq/L (98-107); Glucose 244 mg/dL (70-105); Osmolality,Calculated 305 (280-300); Potassium 4.4 mEq/L (3.5-5.1); Sodium 137 mEq/L (136-145); eGFR For African Americans > 60 (> 60); eGFR For Non-African Americans 55 (> 60)
[2020-01-27] MEDS: Isosorbide MONOnitrate (24 HR) 30 MG TAB.ER.24H PO SCH (09:09)
[2020-01-27] MEDS: Lactulose Oral Soln 20 GM/30 ML UDC PO SCH ×2 (09:09→22:29)
[2020-01-27] MEDS: Loratadine 10 MG TABLET PO SCH (09:09)
[2020-01-27] MEDS: Ondansetron ODT 4 MG TAB.RAPDIS SL PRN ×2 (09:10→22:29)
[2020-01-27] MEDS: Amoxicillin 500 MG CAPSULE PO SCH ×3 (09:10→22:29)
[2020-01-27] MEDS: Aspirin Enteric Coated 81 MG Tablet PO SCH (09:10)
[2020-01-27] MEDS: FLUoxetine 20 MG CAPSULE PO SCH (09:10)
[2020-01-27] MEDS: Fluconazole 100 MG TABLET PO SCH (09:11)
[2020-01-27] MEDS: Insulin LISPRO 300 UNITS/3 ML VIAL SQ SCH ×4 (09:13→22:30)
[2020-01-27] MEDS: Fluticasone Propionate Nasal 50 MCG/SPRAY BOTTLE NS SCH (09:36)
[2020-01-27 15:18] LABS: Hemoglobin 8.5 g/dL (11.5-15.4)
[2020-01-27] MEDS: Vancomycin 1,500 MG/265 ML IV.SOLN IVPB SCH (16:38)
[2020-01-27] MEDS: traZODone 50 MG TABLET PO SCH (22:29)
[2020-01-27] MEDS: Insulin DETEMIR 100 UNIT/ML X5UNITS SQ SCH (22:30)
[2020-01-28] MEDS: Sodium Bicarbonate 75 MEQ in 0.45 % Sodium Chloride 1,000 ML IVC SCH (04:19)
[2020-01-28 05:08] LABS: Basophils % 0.1 %
[2020-01-28 05:10] LABS: Eosinophils # 0.1 K/mcL (0.0-0.6); Eosinophils % 1.1 %; Hematocrit 24.5 % (35.3-44.9); Hemoglobin 7.7 g/dL (11.5-15.4); Immature Granulocytes % 1.1 % (0-4); Lymphocytes # 0.6 K/mcL (0.6-4.6); Lymphocytes % 8.3 %; Mean Corpuscular HGB Conc 31.4 g/dL (31.6-35.5); Mean Corpuscular Hemoglobin 29.1 pg (28.0-33.3); Mean Corpuscular Volume 92.5 fL (83.0-100.0); Mean Platelet Volume 11.9 fL (9.4-12.4); Monocytes # 0.8 K/mcL (0.0-1.3); Monocytes % 10.9 %; Neutrophils # 5.5 K/mcL (1.6-8.9); Platelet Count 106 K/mcL (140-400); Red Blood Count 2.65 M/mcL (3.82-4.97); Red Cell Distribution Width 16.5 % (11.5-14.5); Segmented Neutrophils % 78.5 %
[2020-01-28 05:29] LABS: BUN/Creatinine Ratio 45 (6-26); Blood Urea Nitrogen 42 mg/dL (8-23); Carbon Dioxide 17 mEq/L (23-29); Chloride 108 mEq/L (98-107); Glucose 286 mg/dL (70-105); Osmolality,Calculated 299 (280-300); Potassium 3.9 mEq/L (3.5-5.1); Sodium 134 mEq/L (136-145); eGFR For African Americans > 60 (> 60); eGFR For Non-African Americans > 60 (> 60)
[2020-01-28] MEDS: *HR* Heparin 5,000 UNIT/ML VIAL SQ SCH ×2 (06:18→16:53)
[2020-01-28] MEDS: Simethicone 80 MG TAB.CHEW PO PRN ×2 (06:19→22:59)
[2020-01-28] MEDS: Vancomycin 1,250 MG/262.5 ML IV.SOLN IVPB SCH (07:32)
[2020-01-28] MEDS: Octreotide 400 MCG in 0.9 % Sodium Chloride 100 ML IVC SCH (07:33)
[2020-01-28] MEDS: Lactulose Oral Soln 20 GM/30 ML UDC PO SCH ×2 (07:52→22:47)
[2020-01-28] MEDS: Insulin LISPRO 300 UNITS/3 ML VIAL SQ SCH ×5 (07:52→22:48)
[2020-01-28] MEDS: Fluticasone Propionate Nasal 50 MCG/SPRAY BOTTLE NS SCH (07:52)
[2020-01-28] MEDS: Isosorbide MONOnitrate (24 HR) 30 MG TAB.ER.24H PO SCH (07:52)
[2020-01-28] MEDS: FLUoxetine 20 MG CAPSULE PO SCH (07:53)
[2020-01-28] MEDS: Fluconazole 100 MG TABLET PO SCH (07:53)
[2020-01-28] MEDS: Aspirin Enteric Coated 81 MG Tablet PO SCH (07:53)
[2020-01-28] MEDS: Loratadine 10 MG TABLET PO SCH (07:53)
[2020-01-28] MEDS: Amoxicillin 500 MG CAPSULE PO SCH ×3 (07:53→22:47)
[2020-01-28] MEDS: Vancomycin 1,500 MG/265 ML IV.SOLN IVPB SCH (14:02)
[2020-01-28] MEDS: Acetaminophen 325 MG TABLET PO PRN (14:09)
[2020-01-28 14:50] LABS: Hematocrit 25.9 % (35.3-44.9); Hemoglobin 8.1 g/dL (11.5-15.4)
[2020-01-28] MEDS: traZODone 50 MG TABLET PO SCH (22:47)
[2020-01-28] MEDS: Ondansetron ODT 4 MG TAB.RAPDIS SL PRN (22:47)
[2020-01-28] MEDS: Insulin DETEMIR 100 UNIT/ML X5UNITS SQ SCH (22:48)
[2020-01-29] MEDS: *HR* Heparin 5,000 UNIT/ML VIAL SQ SCH ×2 (05:18→16:36)
[2020-01-29] MEDS: Insulin LISPRO 300 UNITS/3 ML VIAL SQ SCH ×7 (08:14→22:09)
[2020-01-29] MEDS: Fluticasone Propionate Nasal 50 MCG/SPRAY BOTTLE NS SCH (08:14)
[2020-01-29] MEDS: Amoxicillin 500 MG CAPSULE PO SCH ×2 (08:15→16:36)
[2020-01-29] MEDS: Loratadine 10 MG TABLET PO SCH (08:15)
[2020-01-29] MEDS: Fluconazole 100 MG TABLET PO SCH (08:15)
[2020-01-29] MEDS: Lactulose Oral Soln 20 GM/30 ML UDC PO SCH ×2 (08:16→21:59)
[2020-01-29] MEDS: Aspirin Enteric Coated 81 MG Tablet PO SCH (08:16)
[2020-01-29] MEDS: FLUoxetine 20 MG CAPSULE PO SCH (08:16)
[2020-01-29] MEDS: Isosorbide MONOnitrate (24 HR) 30 MG TAB.ER.24H PO SCH (08:16)
[2020-01-29] MEDS: Ondansetron ODT 4 MG TAB.RAPDIS SL PRN ×2 (08:33→22:00)
[2020-01-29] MEDS: lisinopriL 5 MG TABLET PO SCH (08:44)
[2020-01-29 10:17] LABS: Basophils % 0.2 %; Eosinophils # 0.1 K/mcL (0.0-0.6); Eosinophils % 1.2 %; Hematocrit 29.3 % (35.3-44.9); Hemoglobin 9.3 g/dL (11.5-15.4); Immature Granulocytes % 1.2 % (0-4); Lymphocytes # 0.6 K/mcL (0.6-4.6); Lymphocytes % 7.3 %; Mean Corpuscular HGB Conc 31.7 g/dL (31.6-35.5); Mean Corpuscular Hemoglobin 28.9 pg (28.0-33.3); Monocytes # 0.7 K/mcL (0.0-1.3); Monocytes % 8.7 %; Neutrophils # 6.7 K/mcL (1.6-8.9); Platelet Count 104 K/mcL (140-400); Red Blood Count 3.22 M/mcL (3.82-4.97); Red Cell Distribution Width 17.2 % (11.5-14.5); Segmented Neutrophils % 81.4 %; White Blood Count 8.2 K/mcL (4.3-11.1)
[2020-01-29 10:27] LABS: BUN/Creatinine Ratio 42 (6-26); Blood Urea Nitrogen 43 mg/dL (8-23); Calcium 7.8 mg/dL (8.6-10.3); Carbon Dioxide 19 mEq/L (23-29); Chloride 107 mEq/L (98-107); Glucose 264 mg/dL (70-105); Osmolality,Calculated 296 (280-300); Potassium 4.2 mEq/L (3.5-5.1); Sodium 133 mEq/L (136-145); eGFR For African Americans > 60 (> 60); eGFR For Non-African Americans 54 (> 60)
[2020-01-29] MEDS ORDERED: Albumin 25% 25gram/100mL 25 GM/100 ML IV.SOLN IVPB ONE (15:52)
[2020-01-29] MEDS: Vancomycin 1,500 MG/265 ML IV.SOLN IVPB SCH (16:36)
[2020-01-29] MEDS: Simethicone 80 MG TAB.CHEW PO PRN (21:59)
[2020-01-29] MEDS: Acetaminophen 325 MG TABLET PO PRN (21:59)
[2020-01-29] MEDS: Insulin DETEMIR 100 UNIT/ML X5UNITS SQ SCH (21:59)
[2020-01-29] MEDS: traZODone 50 MG TABLET PO SCH (22:00)
[2020-01-30 02:12] LABS: Mean Corpuscular HGB Conc 31.3 g/dL (31.6-35.5)
[2020-01-30 02:14] LABS: Basophils % 0.1 %; Eosinophils # 0.1 K/mcL (0.0-0.6); Eosinophils % 0.9 %; Hematocrit 23.3 % (35.3-44.9); Hemoglobin 7.3 g/dL (11.5-15.4); Immature Granulocytes % 0.7 % (0-4); Immature Platelets 5.8 % (1.1-6.1); Lymphocytes # 0.6 K/mcL (0.6-4.6); Lymphocytes % 8.7 %; Mean Corpuscular Volume 89.3 fL (83.0-100.0); Monocytes # 0.7 K/mcL (0.0-1.3); Monocytes % 9.6 %; Neutrophils # 5.6 K/mcL (1.6-8.9); Red Blood Count 2.61 M/mcL (3.82-4.97)
[2020-01-30 02:20] LABS: Platelet Count 96 K/mcL (140-400)
[2020-01-30 02:33] LABS: BUN/Creatinine Ratio 40 (6-26); Blood Urea Nitrogen 41 mg/dL (8-23); Calcium 7.9 mg/dL (8.6-10.3); Carbon Dioxide 20 mEq/L (23-29); Chloride 109 mEq/L (98-107); Glucose 171 mg/dL (70-105); Osmolality,Calculated 294 (280-300); Potassium 4.4 mEq/L (3.5-5.1); Sodium 135 mEq/L (136-145); eGFR For African Americans > 60 (> 60); eGFR For Non-African Americans 54 (> 60)
[2020-01-30 03:02] LABS: Anisocytosis 1+ (Not Present); Microcytosis Present (Not Present); Platelet Estimate Slight Decrease (Normal)
[2020-01-30] MEDS: *HR* Heparin 5,000 UNIT/ML VIAL SQ SCH ×2 (06:13→16:38)
[2020-01-30] MEDS: Aspirin Enteric Coated 81 MG Tablet PO SCH (08:47)
[2020-01-30] MEDS: Isosorbide MONOnitrate (24 HR) 30 MG TAB.ER.24H PO SCH (08:47)
[2020-01-30] MEDS: FLUoxetine 20 MG CAPSULE PO SCH (08:47)
[2020-01-30] MEDS: Fluconazole 100 MG TABLET PO SCH (08:48)
[2020-01-30] MEDS: lisinopriL 5 MG TABLET PO SCH (08:48)
[2020-01-30] MEDS: Loratadine 10 MG TABLET PO SCH (08:49)
[2020-01-30] MEDS: Fluticasone Propionate Nasal 50 MCG/SPRAY BOTTLE NS SCH (08:49)
[2020-01-30] MEDS: Lactulose Oral Soln 20 GM/30 ML UDC PO SCH ×2 (08:49→22:20)
[2020-01-30] MEDS: Insulin LISPRO 300 UNITS/3 ML VIAL SQ SCH ×7 (08:57→22:20)
[2020-01-30] MEDS ORDERED: 0.9 % Sodium Chloride 250 ML ONE (09:06)
[2020-01-30] MEDS: Vancomycin 1,500 MG/265 ML IV.SOLN IVPB SCH (14:34)
[2020-01-30 14:55] LABS: Hematocrit 26.2 % (35.3-44.9); Hemoglobin 8.2 g/dL (11.5-15.4)
[2020-01-30] MEDS: Acetaminophen 325 MG TABLET PO PRN (16:23)
[2020-01-30] MEDS: Ondansetron ODT 4 MG TAB.RAPDIS SL PRN (22:19)
[2020-01-30] MEDS: Simethicone 80 MG TAB.CHEW PO PRN (22:19)
[2020-01-30] MEDS: Insulin DETEMIR 100 UNIT/ML X5UNITS SQ SCH (22:20)
[2020-01-30] MEDS: traZODone 50 MG TABLET PO SCH (22:20)
[2020-01-31 03:22] LABS: Basophils % 0.3 %; Eosinophils % 0.6 %; Hematocrit 25.8 % (35.3-44.9); Hemoglobin 8.2 g/dL (11.5-15.4); Immature Granulocytes % 0.7 % (0-4); Immature Platelets 6.3 % (1.1-6.1); Lymphocytes # 0.5 K/mcL (0.6-4.6); Lymphocytes % 7.1 %; Mean Corpuscular HGB Conc 31.8 g/dL (31.6-35.5); Mean Corpuscular Hemoglobin 28.2 pg (28.0-33.3); Mean Corpuscular Volume 88.7 fL (83.0-100.0); Mean Platelet Volume 12.4 fL (9.4-12.4); Monocytes # 0.7 K/mcL (0.0-1.3); Monocytes % 10.1 %; Neutrophils # 5.7 K/mcL (1.6-8.9); Red Blood Count 2.91 M/mcL (3.82-4.97); Red Cell Distribution Width 16.6 % (11.5-14.5); Segmented Neutrophils % 81.2 %
[2020-01-31 03:26] LABS: Platelet Count 98 K/mcL (140-400)
[2020-01-31 03:36] LABS: BUN/Creatinine Ratio 40 (6-26); Blood Urea Nitrogen 39 mg/dL (8-23); Calcium 8.2 mg/dL (8.6-10.3); Carbon Dioxide 20 mEq/L (23-29); Chloride 110 mEq/L (98-107); Glucose 151 mg/dL (70-105); Osmolality,Calculated 294 (280-300); Potassium 4.3 mEq/L (3.5-5.1); Sodium 136 mEq/L (136-145); eGFR For African Americans > 60 (> 60); eGFR For Non-African Americans 57 (> 60)
[2020-01-31] MEDS: *HR* Heparin 5,000 UNIT/ML VIAL SQ SCH ×2 (06:14→18:28)
[2020-01-31] MEDS: Isosorbide MONOnitrate (24 HR) 30 MG TAB.ER.24H PO SCH (08:31)
[2020-01-31] MEDS: Lactulose Oral Soln 20 GM/30 ML UDC PO SCH ×2 (08:31→20:35)
[2020-01-31] MEDS: lisinopriL 5 MG TABLET PO SCH (08:33)
[2020-01-31] MEDS: Aspirin Enteric Coated 81 MG Tablet PO SCH (08:33)
[2020-01-31] MEDS: Fluconazole 100 MG TABLET PO SCH (08:33)
[2020-01-31] MEDS: Loratadine 10 MG TABLET PO SCH (08:33)
[2020-01-31] MEDS: FLUoxetine 20 MG CAPSULE PO SCH (08:33)
[2020-01-31] MEDS: Acetaminophen 325 MG TABLET PO PRN (08:38)
[2020-01-31] MEDS: Insulin LISPRO 300 UNITS/3 ML VIAL SQ SCH ×7 (08:39→20:34)
[2020-01-31] MEDS: Fluticasone Propionate Nasal 50 MCG/SPRAY BOTTLE NS SCH (08:43)
[2020-01-31] MEDS: Vancomycin 1,500 MG/265 ML IV.SOLN IVPB SCH (15:12)
[2020-01-31] MEDS ORDERED: SODIUM CHLORIDE/NAHCO3/KCL/PEG 4,000 ML SOLN.RECON PO ONE (17:00)
[2020-01-31] MEDS ORDERED: Ibuprofen 400 MG TABLET PO ONE (17:46)
[2020-01-31 19:26] LABS: Adenovirus Not Detected (Not Detect); Coronavirus 229E Not Detected (Not Detect); Coronavirus HKU1 Not Detected (Not Detect); Coronavirus NL63 Not Detected (Not Detect); Coronavirus OC43 Not Detected (Not Detect)
[2020-01-31 19:28] LABS: Bordetella Pertussis Not Detected (Not Detect); Chlamydophila pneumoniae Not Detected (Not Detect); Human Metapneumovirus Not Detected (Not Detect); Human Rhinovirus/Enterovirus Not Detected (Not Detect); Influenza A Subtype 2009 H1 Not Detected (Not Detect); Influenza B Not Detected (Not Detect); Mycoplasma pneumoniae Not Detected (Not Detect); Parainfluenza Virus 1 Not Detected (Not Detect); Parainfluenza Virus 2 Not Detected (Not Detect); Parainfluenza Virus 3 Not Detected (Not Detect); Parainfluenza Virus 4 Not Detected (Not Detect); Respiratory Syncytial Virus Not Detected (Not Detect)
[2020-01-31] MEDS: Insulin DETEMIR 100 UNIT/ML X5UNITS SQ SCH (20:35)
[2020-01-31] MEDS: traZODone 50 MG TABLET PO SCH (20:35)
[2020-02-01] MEDS: Acetaminophen 325 MG TABLET PO PRN ×2 (04:26→21:33)
[2020-02-01] MEDS: *HR* Heparin 5,000 UNIT/ML VIAL SQ SCH ×2 (05:09→16:58)
[2020-02-01 05:45] LABS: Basophils % 0.3 %; Eosinophils % 1.1 %; Immature Granulocytes % 0.5 % (0-4); Mean Platelet Volume 11.7 fL (9.4-12.4); Red Blood Count 3.23 M/mcL (3.82-4.97)
[2020-02-01 05:47] LABS: Eosinophils # 0.1 K/mcL (0.0-0.6); Hematocrit 30.1 % (35.3-44.9); Hemoglobin 9.3 g/dL (11.5-15.4); Immature Platelets 3.9 % (1.1-6.1); Lymphocytes # 0.6 K/mcL (0.6-4.6); Lymphocytes % 9.6 %; Mean Corpuscular HGB Conc 30.9 g/dL (31.6-35.5); Mean Corpuscular Hemoglobin 28.8 pg (28.0-33.3); Mean Corpuscular Volume 93.2 fL (83.0-100.0); Monocytes # 0.6 K/mcL (0.0-1.3); Monocytes % 10.3 %; Neutrophils # 4.9 K/mcL (1.6-8.9); Platelet Count 112 K/mcL (140-400); Red Cell Distribution Width 17.4 % (11.5-14.5); Segmented Neutrophils % 78.2 %; White Blood Count 6.2 K/mcL (4.3-11.1)
[2020-02-01 06:00] LABS: Calcium 8.2 mg/dL (8.6-10.3); Potassium 4.5 mEq/L (3.5-5.1)
[2020-02-01] MEDS: Insulin LISPRO 300 UNITS/3 ML VIAL SQ SCH ×7 (08:12→20:17)
[2020-02-01] MEDS: FLUoxetine 20 MG CAPSULE PO SCH (08:22)
[2020-02-01] MEDS: Fluconazole 100 MG TABLET PO SCH (08:22)
[2020-02-01] MEDS: Aspirin Enteric Coated 81 MG Tablet PO SCH (08:22)
[2020-02-01] MEDS: Loratadine 10 MG TABLET PO SCH (08:22)
[2020-02-01] MEDS: Lactulose Oral Soln 20 GM/30 ML UDC PO SCH ×2 (08:23→20:15)
[2020-02-01] MEDS: lisinopriL 5 MG TABLET PO SCH (08:23)
[2020-02-01] MEDS: Isosorbide MONOnitrate (24 HR) 30 MG TAB.ER.24H PO SCH (08:23)
[2020-02-01] MEDS: Fluticasone Propionate Nasal 50 MCG/SPRAY BOTTLE NS SCH (08:24)
[2020-02-01] MEDS ORDERED: *HR* PHENYLEPHRINE 1,000 MCG/10 ML SYRINGE IVP ONE (13:40)
[2020-02-01] MEDS ORDERED: Lidocaine -MPF 2% 2 ML VIAL ONE (13:40)
[2020-02-01] MEDS: Amoxicillin 500 MG CAPSULE PO SCH ×2 (16:58→20:16)
[2020-02-01] MEDS: traZODone 50 MG TABLET PO SCH (20:15)
[2020-02-01] MEDS: Insulin DETEMIR 100 UNIT/ML X5UNITS SQ SCH (20:16)
[2020-02-02] MEDS: *HR* Heparin 5,000 UNIT/ML VIAL SQ SCH (05:35)
[2020-02-02] MEDS: Insulin LISPRO 300 UNITS/3 ML VIAL SQ SCH ×6 (08:15→16:30)
[2020-02-02] MEDS: Amoxicillin 500 MG CAPSULE PO SCH ×2 (10:25→16:23)
[2020-02-02] MEDS: Loratadine 10 MG TABLET PO SCH (10:25)
[2020-02-02] MEDS: Lactulose Oral Soln 20 GM/30 ML UDC PO SCH (10:25)
[2020-02-02] MEDS: Fluconazole 100 MG TABLET PO SCH (10:25)
[2020-02-02] MEDS: FLUoxetine 20 MG CAPSULE PO SCH (10:25)
[2020-02-02] MEDS: lisinopriL 5 MG TABLET PO SCH (10:25)
[2020-02-02] MEDS: Aspirin Enteric Coated 81 MG Tablet PO SCH (10:26)
[2020-02-02] MEDS: Isosorbide MONOnitrate (24 HR) 30 MG TAB.ER.24H PO SCH (10:26)
[2020-02-02] MEDS: Fluticasone Propionate Nasal 50 MCG/SPRAY BOTTLE NS SCH (10:48)
[2020-02-02 12:02] LABS: Calcium 8.1 mg/dL (8.6-10.3); Potassium 4.5 mEq/L (3.5-5.1)
[2020-02-02 16:09] VITALS: BP 137/89
[2020-02-02] MEDS: Simethicone 80 MG TAB.CHEW PO PRN (16:41)
== END 2020-02-02 17:12 | DRG 64 ==
LOC: EMEROOARM 14:36 → 2ANU 14:36 → SUATTDRO 18:08 → 2ANU 18:24
PROVIDERS: ADMIT Internal Medicine; ATTEND Internal Medicine
PROC: ENDOEBX (2020-01-25 11:30)

== ENCOUNTER 2020-07-21 06:32 | Inpatient (IN) ==
[~2020-07-21 06:32] MED LIST: Acetaminophen 325 MG TABLET PO PRN; Naloxone 0.4 MG/ML INJ IVP PRN; Ondansetron 4 MG/2 ML VIAL IVP PRN
[2020-07-21 07:22] LABS: Hematocrit 28.1 % (35.3-44.9); Hemoglobin 8.8 g/dL (11.5-15.4); Immature Granulocytes % 0.2 % (0-4); Mean Corpuscular HGB Conc 31.3 g/dL (31.6-35.5); Mean Corpuscular Hemoglobin 30.2 pg (28.0-33.3); Mean Corpuscular Volume 96.6 fL (83.0-100.0); Mean Platelet Volume 11.2 fL (9.4-12.4); Red Blood Count 2.91 M/mcL (3.82-4.97); Segmented Neutrophils % 78.1 %
[2020-07-21 07:23] LABS: INR 1.3
[2020-07-21 07:24] LABS: Basophils % 0.2 %; Eosinophils % 0.7 %; Immature Platelets 3.8 % (1.1-6.1); Lymphocytes # 0.5 K/mcL (0.6-4.6); Lymphocytes % 12.1 %; Monocytes # 0.4 K/mcL (0.0-1.3); Monocytes % 8.7 %; Neutrophils # 3.3 K/mcL (1.6-8.9); Platelet Count 77 K/mcL (140-400); Red Cell Distribution Width 15.1 % (11.5-14.5); White Blood Count 4.2 K/mcL (4.3-11.1)
[2020-07-21 07:37] LABS: Albumin 3.9 g/dL (3.5-5.7); Albumin/Globulin Ratio 1.2 (1.1-2.2); Bilirubin,Total 0.8 mg/dL (0.3-1.0); Calcium 9.5 mg/dL (8.6-10.3); Globulin 3.3 g/dL (2.4-3.5); Magnesium 1.9 mg/dL (1.6-2.6); Phosphorous 3.5 mg/dL (2.7-4.5); Potassium 5.5 mEq/L (3.5-5.1); Total Protein 7.2 g/dL (6.4-8.9)
[2020-07-21] MEDS ORDERED: Naloxone 0.4 MG/ML INJ IVP PRN (08:37)
[2020-07-21] MEDS ORDERED: Dextrose Gel 15 GM/37.5 ML TUBE PO PRN ×2 (08:37)
[2020-07-21] MEDS ORDERED: D5% in Water 1,000 ML IVC PRN (08:37)
[2020-07-21] MEDS ORDERED: *HR* Dextrose 50 % in Water (Vial) 50 ML VIAL IVP PRN (08:37)
[2020-07-21] MEDS: Lactulose Oral Soln 20 GM/30 ML UDC PO SCH ×2 (09:25→20:41)
[2020-07-21] MEDS: Albumin 25% 25gram/100mL 25 GM/100 ML IV.SOLN IVPB SCH ×2 (09:36→14:50)
[2020-07-21] MEDS: Insulin LISPRO 300 UNITS/3 ML VIAL SUBQ SCH ×2 (11:16→18:12)
[2020-07-21 15:33] LABS: Calcium 9.4 mg/dL (8.6-10.3); Potassium 5.6 mEq/L (3.5-5.1)
[2020-07-21] MEDS ORDERED: traZODone 50 MG TABLET PO ONE (22:46)
[2020-07-21] MEDS ORDERED: Melatonin 3 MG TABLET PO ONE (22:46)
[2020-07-22 01:04] LABS: Hemoglobin 7.5 g/dL (11.5-15.4); Mean Corpuscular Hemoglobin 31.1 pg (28.0-33.3); Red Blood Count 2.41 M/mcL (3.82-4.97)
[2020-07-22 01:06] LABS: Basophils % 0.4 %; Eosinophils % 1.1 %; Hematocrit 23.4 % (35.3-44.9); Immature Granulocytes % 0.8 % (0-4); Immature Platelets 2.4 % (1.1-6.1); Lymphocytes # 0.4 K/mcL (0.6-4.6); Lymphocytes % 16.1 %; Mean Corpuscular HGB Conc 32.1 g/dL (31.6-35.5); Mean Corpuscular Volume 97.1 fL (83.0-100.0); Mean Platelet Volume 11.1 fL (9.4-12.4); Monocytes # 0.3 K/mcL (0.0-1.3); Monocytes % 11.9 %; Neutrophils # 1.8 K/mcL (1.6-8.9); Red Cell Distribution Width 14.7 % (11.5-14.5); Segmented Neutrophils % 69.7 %; White Blood Count 2.6 K/mcL (4.3-11.1)
[2020-07-22 01:07] LABS: Platelet Count 62 K/mcL (140-400)
[2020-07-22 01:18] LABS: INR 1.4; Prothrombin Time 15.6 Seconds (9.4-12.1)
[2020-07-22 01:20] LABS: Activated Partial Thrombo Time 28.8 Seconds (26.0-36.0)
[2020-07-22] MEDS ORDERED: *HR* FentaNYL (PF) 100 MCG/2 ML VIAL ONE (06:52)
[2020-07-22] MEDS ORDERED: *HR* PHENYLEPHRINE 1,000 MCG/10 ML SYRINGE IVP ONE (06:52)
[2020-07-22] MEDS: Lactulose Oral Soln 20 GM/30 ML UDC PO SCH ×4 (07:20→20:30)
[2020-07-22] MEDS: Insulin LISPRO 300 UNITS/3 ML VIAL SUBQ SCH ×3 (07:20→14:08)
[2020-07-22] MEDS ORDERED: polyethylene glycoL 3350 17 GM POWD.PACK PO PRN (07:20)
[2020-07-22] MEDS ORDERED: Heparin 1,000 UNITS/500 mL 500 ML ONE ×2 (07:21→07:53)
[2020-07-22] MEDS ORDERED: 0.9 % Sodium Chloride 500 ML ONE (07:21)
[2020-07-22 07:23] LABS: Calcium 9.1 mg/dL (8.6-10.3); Potassium 4.6 mEq/L (3.5-5.1)
[2020-07-22] MEDS: Aspirin Enteric Coated 81 MG Tablet PO SCH (07:41)
[2020-07-22] MEDS ORDERED: Simethicone 80 MG TAB.CHEW PO PRN (08:01)
[2020-07-22] MEDS: Loratadine 10 MG TABLET PO SCH (08:45)
[2020-07-22] MEDS: Fluticasone Propionate Nasal 50 MCG/SPRAY BOTTLE NS SCH (08:45)
[2020-07-22] MEDS: Cholecalciferol (D-3) 1,000 UNIT (25MCG) TABLET PO SCH (08:45)
[2020-07-22] MEDS: FLUoxetine 20 MG CAPSULE PO SCH (08:45)
[2020-07-22] MEDS: Isosorbide MONOnitrate (24 HR) 30 MG TAB.ER.24H PO SCH (08:45)
[2020-07-22] MEDS ORDERED: Isovue-300 50ML VIAL IVP ONE (09:03)
[2020-07-22] MEDS ORDERED: Ondansetron 4 MG/2 ML VIAL IVP ONE ×2 (09:48→13:46)
[2020-07-22] MEDS ORDERED: *HR* Propofol 200 MG/20 ML VIAL IVP ONE (09:48)
[2020-07-22] MEDS ORDERED: *HR* Water for inj. (sterile) Vial IV ONE (09:48)
[2020-07-22] MEDS ORDERED: *HR* Succinylcholine 200 MG/10 ML VIAL IVP ONE (09:48)
[2020-07-22] MEDS ORDERED: *HR* Rocuronium Bromide 50 MG/5 ML VIAL IVP ONE (09:48)
[2020-07-22] MEDS ORDERED: Lidocaine -MPF 4% 5 ML AMPUL INFILT ONE (09:48)
[2020-07-22] MEDS ORDERED: Lidocaine -MPF 2% 5 ML VIAL INFILT ONE (09:48)
[2020-07-22] MEDS ORDERED: 0.9 % Sodium Chloride 250 ML ONE (11:04)
[2020-07-22] MEDS ORDERED: *HR* OxyCODONE Immed Rel 5 MG TABLET PO PRN (13:36)
[2020-07-22 19:50] LABS: Hematocrit 29.7 % (35.3-44.9); Hemoglobin 9.8 g/dL (11.5-15.4)
[2020-07-22] MEDS: Melatonin 3 MG TABLET PO SCH (20:29)
[2020-07-22] MEDS: Ondansetron 4 MG/2 ML VIAL IVP PRN (20:30)
[2020-07-22] MEDS ORDERED: traZODone 50 MG TABLET PO PRN (21:00)
[2020-07-23 01:21] LABS: Red Blood Count 3.11 M/mcL (3.82-4.97)
[2020-07-23 01:23] LABS: Hematocrit 29.1 % (35.3-44.9); Hemoglobin 9.5 g/dL (11.5-15.4); Immature Platelets 3.3 % (1.1-6.1); Mean Corpuscular HGB Conc 32.6 g/dL (31.6-35.5); Mean Corpuscular Hemoglobin 30.5 pg (28.0-33.3); Mean Corpuscular Volume 93.6 fL (83.0-100.0); Mean Platelet Volume 10.9 fL (9.4-12.4); Red Cell Distribution Width 16.1 % (11.5-14.5); White Blood Count 6.1 K/mcL (4.3-11.1)
[2020-07-23 01:38] LABS: Albumin 3.8 g/dL (3.5-5.7); Albumin/Globulin Ratio 1.2 (1.1-2.2); Bilirubin,Direct 0.2 mg/dL (0.0-0.2); Bilirubin,Indirect 1.3 mg/dL (0.0-1.0); Bilirubin,Total 1.5 mg/dL (0.3-1.0); Calcium 9.2 mg/dL (8.6-10.3); Globulin 3.1 g/dL (2.4-3.5); Potassium 4.9 mEq/L (3.5-5.1); Total Protein 6.9 g/dL (6.4-8.9)
[2020-07-23] MEDS: Insulin LISPRO 300 UNITS/3 ML VIAL SUBQ SCH ×3 (08:22→17:03)
[2020-07-23] MEDS: Aspirin Enteric Coated 81 MG Tablet PO SCH (08:24)
[2020-07-23] MEDS: Isosorbide MONOnitrate (24 HR) 30 MG TAB.ER.24H PO SCH (08:24)
[2020-07-23] MEDS: Cholecalciferol (D-3) 1,000 UNIT (25MCG) TABLET PO SCH (08:24)
[2020-07-23] MEDS: FLUoxetine 20 MG CAPSULE PO SCH (08:25)
[2020-07-23] MEDS: Loratadine 10 MG TABLET PO SCH (08:26)
[2020-07-23] MEDS: Lactulose Oral Soln 20 GM/30 ML UDC PO SCH ×3 (08:26→20:53)
[2020-07-23] MEDS: Fluticasone Propionate Nasal 50 MCG/SPRAY BOTTLE NS SCH (08:32)
[2020-07-23] MEDS: Ondansetron 4 MG/2 ML VIAL IVP PRN ×2 (09:04→17:24)
[2020-07-23 11:51] LABS: Albumin 3.9 g/dL (3.5-5.7); Albumin/Globulin Ratio 1.4 (1.1-2.2); Bilirubin,Direct 0.5 mg/dL (0.0-0.2); Bilirubin,Indirect 1.3 mg/dL (0.0-1.0); Bilirubin,Total 1.8 mg/dL (0.3-1.0); Globulin 2.8 g/dL (2.4-3.5); Total Protein 6.7 g/dL (6.4-8.9)
[2020-07-23] MEDS: Baclofen 10 MG TABLET PO PRN (15:00)
[2020-07-23] MEDS: Melatonin 3 MG TABLET PO SCH (20:52)
[2020-07-24 01:26] LABS: Hemoglobin 8.5 g/dL (11.5-15.4); Red Cell Distribution Width 15.9 % (11.5-14.5)
[2020-07-24 01:28] LABS: Hematocrit 25.8 % (35.3-44.9); Immature Platelets 2.8 % (1.1-6.1); Mean Corpuscular HGB Conc 32.9 g/dL (31.6-35.5); Mean Corpuscular Volume 91.2 fL (83.0-100.0); Mean Platelet Volume 10.6 fL (9.4-12.4); Red Blood Count 2.83 M/mcL (3.82-4.97); White Blood Count 6.7 K/mcL (4.3-11.1)
[2020-07-24 01:44] LABS: Albumin 3.6 g/dL (3.5-5.7); Albumin/Globulin Ratio 1.3 (1.1-2.2); Bilirubin,Direct 0.5 mg/dL (0.0-0.2); Bilirubin,Indirect 1.8 mg/dL (0.0-1.0); Bilirubin,Total 2.3 mg/dL (0.3-1.0); Calcium 9.1 mg/dL (8.6-10.3); Globulin 2.7 g/dL (2.4-3.5); Potassium 4.6 mEq/L (3.5-5.1); Total Protein 6.3 g/dL (6.4-8.9)
[2020-07-24] MEDS: Insulin LISPRO 300 UNITS/3 ML VIAL SUBQ SCH ×2 (07:50→11:37)
[2020-07-24] MEDS: Aspirin Enteric Coated 81 MG Tablet PO SCH (08:00)
[2020-07-24] MEDS: Loratadine 10 MG TABLET PO SCH (08:00)
[2020-07-24] MEDS: Cholecalciferol (D-3) 1,000 UNIT (25MCG) TABLET PO SCH (08:00)
[2020-07-24] MEDS: FLUoxetine 20 MG CAPSULE PO SCH (08:00)
[2020-07-24] MEDS: Isosorbide MONOnitrate (24 HR) 30 MG TAB.ER.24H PO SCH (08:00)
[2020-07-24] MEDS: Lactulose Oral Soln 20 GM/30 ML UDC PO SCH (08:00)
[2020-07-24] MEDS: Fluticasone Propionate Nasal 50 MCG/SPRAY BOTTLE NS SCH (09:07)
[2020-07-24 11:48] VITALS: BP 105/65
[2020-07-24] MEDS: Baclofen 10 MG TABLET PO PRN (12:07)
== END 2020-07-24 13:45 | disposition other institution (70) | DRG 406 ==
LOC: 2ANU → SUATTDRO 06:33 → ICNU 07-22 10:18 → 2NNU 07-22 12:59
PROVIDERS: ADMIT Internal Medicine; ATTEND Internal Medicine

== ENCOUNTER 2020-07-25 21:43 | Inpatient (IN) ==
[2020-07-25] MEDS ORDERED: Isovue-370 500 ML BOTTLE IVP ONE (22:11)
[2020-07-25 22:27] LABS: Bacteria,Urine Few per hpf (None-Few); Bilirubin,Urine Negative (Negative); Blood,Urine Negative (Negative); Clarity,Urine Clear (Clear); Color,Urine Light-Yellow (Yellow); Glucose,Urine (UA) Normal (Normal); Ketones,Urine Negative (Negative); Leukocyte Esterase,Urine Small (Negative); Mucus,Urine Few per lpf (None-Few); Nitrite,Urine Negative (Negative); PH,Urine 5.5 pH Units (5.0-8.0); Protein,Urine Negative (Neg-Trace); RBC,Urine 0-3 per hpf (0-3); Specific Gravity,Urine 1.009 (1.010-1.025); Squamous Epithelial Cell,Urine Few per hpf (None-Few); Urobilinogen,Urine Normal (Normal)
[2020-07-25 22:50] LABS: Eosinophils % 1.5 %; Mean Corpuscular HGB Conc 33.6 g/dL (31.6-35.5); Red Blood Count 2.78 M/mcL (3.82-4.97)
[2020-07-25 22:52] LABS: Basophils % 0.5 %; Eosinophils # 0.1 K/mcL (0.0-0.6); Hemoglobin 8.4 g/dL (11.5-15.4); Immature Granulocytes % 0.9 % (0-4); Lymphocytes # 0.9 K/mcL (0.6-4.6); Lymphocytes % 13.7 %; Mean Corpuscular Hemoglobin 30.2 pg (28.0-33.3); Mean Corpuscular Volume 89.9 fL (83.0-100.0); Mean Platelet Volume 10.3 fL (9.4-12.4); Monocytes # 0.7 K/mcL (0.0-1.3); Monocytes % 10.4 %; Neutrophils # 4.9 K/mcL (1.6-8.9); Nucleated Red Blood Cells 0.3 /100 WBC (0); Red Cell Distribution Width 16.1 % (11.5-14.5); White Blood Count 6.7 K/mcL (4.3-11.1)
[2020-07-25 22:53] LABS: Platelet Count 87 K/mcL (140-400)
[2020-07-25 22:57] LABS: INR 1.4; Prothrombin Time 15.6 Seconds (9.4-12.1)
[2020-07-25 23:11] LABS: Albumin 3.6 g/dL (3.5-5.7); Albumin/Globulin Ratio 1.2 (1.1-2.2); Bilirubin,Direct 0.7 mg/dL (0.0-0.2); Bilirubin,Indirect 2.1 mg/dL (0.0-1.0); Bilirubin,Total 2.8 mg/dL (0.3-1.0); Calcium 9.3 mg/dL (8.6-10.3); Potassium 4.4 mEq/L (3.5-5.1); Total Protein 6.6 g/dL (6.4-8.9); Troponin I 0.03 ng/mL (< 0.04)
[2020-07-26] MEDS ORDERED: Lactulose Oral Soln 20 GM/30 ML UDC PO ONE (01:39)
[2020-07-26] MEDS ORDERED: Naloxone 0.4 MG/ML INJ IVP PRN (01:57)
[2020-07-26] MEDS ORDERED: 0.9 % Sodium Chloride 1,000 ML IVC SCH (02:00)
[2020-07-26] MEDS: cefTRIAXone 1,000 MG in 0.9 % Sodium Chloride Mini Bag 100 ML IVPB SCH (03:45)
[2020-07-26 06:04] LABS: Hemoglobin 7.8 g/dL (11.5-15.4); Immature Platelets 3.1 % (1.1-6.1); Mean Corpuscular HGB Conc 33.9 g/dL (31.6-35.5); Mean Corpuscular Hemoglobin 30.2 pg (28.0-33.3); Mean Corpuscular Volume 89.1 fL (83.0-100.0); Mean Platelet Volume 10.6 fL (9.4-12.4); Red Blood Count 2.58 M/mcL (3.82-4.97); Red Cell Distribution Width 16.1 % (11.5-14.5); White Blood Count 5.3 K/mcL (4.3-11.1)
[2020-07-26 06:27] LABS: Albumin 3.4 g/dL (3.5-5.7); Albumin/Globulin Ratio 1.3 (1.1-2.2); Bilirubin,Total 2.6 mg/dL (0.3-1.0); Calcium 9.1 mg/dL (8.6-10.3); Globulin 2.6 g/dL (2.4-3.5); Phosphorous 2.2 mg/dL (2.7-4.5); Potassium 4.2 mEq/L (3.5-5.1)
[2020-07-26] MEDS: Lactulose Oral Soln 20 GM/30 ML UDC PO SCH ×3 (08:50→21:33)
[2020-07-26] MEDS ORDERED: Lactulose Oral Soln 20 GM/30 ML UDC PO SCH (09:00)
[2020-07-26] MEDS ORDERED: Baclofen 10 MG TABLET PO PRN (11:56)
[2020-07-26] MEDS ORDERED: D5% in Water 1,000 ML IVC PRN (11:57)
[2020-07-26] MEDS ORDERED: *HR* Dextrose 50 % in Water (Vial) 50 ML VIAL IVP PRN (11:57)
[2020-07-26] MEDS ORDERED: Dextrose Gel 15 GM/37.5 ML TUBE PO PRN (11:57)
[2020-07-26] MEDS: Pantoprazole 40 MG VIAL IVP SCH (16:09)
[2020-07-26] MEDS ORDERED: Furosemide 20 MG TABLET PO SCH (17:00)
[2020-07-26] MEDS: Insulin LISPRO 300 UNITS/3 ML VIAL SUBQ SCH ×2 (17:50→21:33)
[2020-07-26] MEDS: Ondansetron 4 MG/2 ML VIAL IVP PRN (21:40)
[2020-07-27 02:06] LABS: Hematocrit 23.6 % (35.3-44.9); Hemoglobin 7.8 g/dL (11.5-15.4); Immature Platelets 2.3 % (1.1-6.1); Mean Corpuscular HGB Conc 33.1 g/dL (31.6-35.5); Mean Corpuscular Hemoglobin 29.7 pg (28.0-33.3); Mean Corpuscular Volume 89.7 fL (83.0-100.0); Mean Platelet Volume 10.1 fL (9.4-12.4); Red Blood Count 2.63 M/mcL (3.82-4.97); Red Cell Distribution Width 16.4 % (11.5-14.5); White Blood Count 4.9 K/mcL (4.3-11.1)
[2020-07-27 02:25] LABS: Phosphorous 2.8 mg/dL (2.7-4.5)
[2020-07-27] MEDS: cefTRIAXone 1,000 MG in 0.9 % Sodium Chloride Mini Bag 100 ML IVPB SCH (04:29)
[2020-07-27] MEDS: Aspirin Enteric Coated 81 MG Tablet PO SCH (07:35)
[2020-07-27] MEDS: Furosemide 20 MG TABLET PO SCH (07:35)
[2020-07-27] MEDS: Lactulose Oral Soln 20 GM/30 ML UDC PO SCH ×3 (07:35→19:44)
[2020-07-27] MEDS: Pantoprazole 40 MG VIAL IVP SCH (07:35)
[2020-07-27] MEDS: Insulin LISPRO 300 UNITS/3 ML VIAL SUBQ SCH ×4 (07:36→19:44)
[2020-07-27] MEDS ORDERED: FLUoxetine 20 MG CAPSULE PO SCH (09:00)
[2020-07-27] MEDS ORDERED: Lactulose 200 GM, Sodium Chloride IRRigation 700 ML RC ONE (10:06)
[2020-07-27] MEDS: Ondansetron 4 MG/2 ML VIAL IVP PRN ×2 (13:29→22:16)
[2020-07-27] MEDS: Nitrofurantoin (BID) 100 MG CAPSULE PO SCH ×2 (13:29→17:18)
[2020-07-28] MEDS ORDERED: Melatonin 3 MG TABLET PO SCH (00:45)
[2020-07-28 04:51] LABS: Hematocrit 22.8 % (35.3-44.9); Hemoglobin 7.7 g/dL (11.5-15.4); Immature Platelets 2.2 % (1.1-6.1); Mean Corpuscular HGB Conc 33.8 g/dL (31.6-35.5); Mean Corpuscular Hemoglobin 30.2 pg (28.0-33.3); Mean Corpuscular Volume 89.4 fL (83.0-100.0); Mean Platelet Volume 10.3 fL (9.4-12.4); Red Blood Count 2.55 M/mcL (3.82-4.97); Red Cell Distribution Width 17.1 % (11.5-14.5); White Blood Count 5.1 K/mcL (4.3-11.1)
[2020-07-28 05:04] LABS: Magnesium 1.9 mg/dL (1.6-2.6); Potassium 3.9 mEq/L (3.5-5.1)
[2020-07-28] MEDS: Aspirin Enteric Coated 81 MG Tablet PO SCH (07:41)
[2020-07-28] MEDS: Furosemide 20 MG TABLET PO SCH (07:41)
[2020-07-28] MEDS: Pantoprazole 40 MG VIAL IVP SCH (07:42)
[2020-07-28] MEDS: Nitrofurantoin (BID) 100 MG CAPSULE PO SCH (07:42)
[2020-07-28] MEDS: Lactulose Oral Soln 20 GM/30 ML UDC PO SCH (07:42)
[2020-07-28] MEDS: Insulin LISPRO 300 UNITS/3 ML VIAL SUBQ SCH (07:42)
[2020-07-28 07:53] VITALS: BP 149/72
[2020-07-28] MEDS ORDERED: Insulin DETEMIR 100 UNIT/ML X5UNITS SUBQ SCH (09:00)
== END 2020-07-28 10:10 | DRG 442 ==
LOC: EMEROOARM 21:43 → 2NENU 21:43 → SUATTDRO 07-27 10:45
PROVIDERS: ADMIT Internal Medicine; ATTEND Internal Medicine

== ENCOUNTER 2020-08-02 16:28 | Inpatient (IN) ==
[2020-08-02 17:18] LABS: Basophils % 0.2 %; Red Blood Count 2.28 M/mcL (3.82-4.97)
[2020-08-02 17:20] LABS: Eosinophils % 0.3 %; Hematocrit 21.6 % (35.3-44.9); Hemoglobin 7.2 g/dL (11.5-15.4); Immature Granulocytes % 0.7 % (0-4); Immature Platelets 2.5 % (1.1-6.1); Lymphocytes # 0.5 K/mcL (0.6-4.6); Lymphocytes % 8.8 %; Mean Corpuscular HGB Conc 33.3 g/dL (31.6-35.5); Mean Corpuscular Hemoglobin 31.6 pg (28.0-33.3); Mean Corpuscular Volume 94.7 fL (83.0-100.0); Mean Platelet Volume 10.3 fL (9.4-12.4); Monocytes # 0.4 K/mcL (0.0-1.3); Monocytes % 7.4 %; Neutrophils # 4.9 K/mcL (1.6-8.9); Red Cell Distribution Width 20.8 % (11.5-14.5); Segmented Neutrophils % 82.6 %; White Blood Count 5.9 K/mcL (4.3-11.1)
[2020-08-02 17:23] LABS: Platelet Count 73 K/mcL (140-400)
[2020-08-02 17:37] LABS: BUN/Creatinine Ratio 23 (6-26); Blood Urea Nitrogen 37 mg/dL (8-23); Calcium 9.2 mg/dL (8.6-10.3); Carbon Dioxide 14 mEq/L (23-29); Chloride 116 mEq/L (98-107); Ethanol < 10 mg/dL (Less than 10); Glucose 202 mg/dL (70-105); Osmolality,Calculated 306 (280-300); Sodium 141 mEq/L (136-145); eGFR For African Americans 38 (> 60); eGFR For Non-African Americans 32 (> 60)
[2020-08-02 17:41] LABS: Troponin I < 0.03 ng/mL (< 0.04)
[2020-08-02 18:00] LABS: Bilirubin,Urine Negative (Negative); Blood,Urine Negative (Negative); Clarity,Urine Clear (Clear); Color,Urine Yellow (Yellow); Glucose,Urine (UA) Normal (Normal); Ketones,Urine Negative (Negative); Leukocyte Esterase,Urine Negative (Negative); Nitrite,Urine Negative (Negative); Protein,Urine Trace mg/dL (Neg-Trace); Specific Gravity,Urine 1.014 (1.010-1.025)
[2020-08-02 18:02] LABS: Amphetamine Screen,Urine Negative ng/mL (Cutoff=1000); Barbiturate Screen,Urine Negative ng/mL (Cutoff=200); Benzodiazepines Screen,Urine Negative ng/mL (Cutoff=200); Cannabinoid Screen,Urine Negative ng/mL (Cutoff = 50); Cocaine Screen,Urine Negative ng/mL (Cutoff= 300); Opiate Screen,Urine Negative ng/mL (Cutoff=300); Phencyclidine Screen,Urine Negative ng/mL (Cutoff=25)
[2020-08-02 20:07] LABS: Acetaminophen < 10 mcg/mL (10-20)
[2020-08-02] MEDS ORDERED: Bisacodyl 10 MG RECTAL SUPPOSITORY RC PRN (20:44)
[2020-08-02] MEDS ORDERED: Simethicone 80 MG TAB.CHEW PO PRN (20:59)
[2020-08-02] MEDS ORDERED: Ondansetron ODT 4 MG TAB.RAPDIS PO PRN (20:59)
[2020-08-02] MEDS ORDERED: Artificial Tears SOLN 15 ML BOTTLE BOTH EYES PRN (21:00)
[2020-08-02] MEDS ORDERED: Naloxone 0.4 MG/ML INJ IVP PRN (21:26)
[2020-08-02] MEDS ORDERED: 0.9 % Sodium Chloride 1,000 ML IVC ONE (21:34)
[2020-08-02] MEDS ORDERED: *HR* Dextrose 50 % in Water (Vial) 50 ML VIAL IVP PRN (21:44)
[2020-08-02] MEDS ORDERED: Dextrose Gel 15 GM/37.5 ML TUBE PO PRN ×2 (21:44)
[2020-08-02] MEDS ORDERED: D5% in Water 1,000 ML IVC PRN (21:44)
[2020-08-02] MEDS: Lactulose Oral Soln 20 GM/30 ML UDC PO SCH (21:58)
[2020-08-02] MEDS ORDERED: Lactulose 200 GM, Sodium Chloride IRRigation 700 ML RC ONE (22:09)
[2020-08-02 22:51] LABS: Estimated Average Glucose 108 mg/dl; Hemoglobin A1C 5.4 %
[2020-08-02] MEDS: 0.9 % Sodium Chloride 1,000 ML IVC SCH (23:15)
[2020-08-02] MEDS: Insulin LISPRO 300 UNITS/3 ML VIAL SUBQ SCH (23:53)
[2020-08-03 00:45] LABS: Basophils % 0.2 %; Hematocrit 22.5 % (35.3-44.9); Mean Corpuscular Volume 96.2 fL (83.0-100.0); Red Blood Count 2.34 M/mcL (3.82-4.97)
[2020-08-03 00:47] LABS: Eosinophils % 0.5 %; Hemoglobin 7.2 g/dL (11.5-15.4); Immature Granulocytes % 0.5 % (0-4); Immature Platelets 2.1 % (1.1-6.1); Lymphocytes # 0.7 K/mcL (0.6-4.6); Lymphocytes % 12.4 %; Mean Corpuscular Hemoglobin 30.8 pg (28.0-33.3); Mean Platelet Volume 10.7 fL (9.4-12.4); Monocytes # 0.6 K/mcL (0.0-1.3); Monocytes % 9.7 %; Neutrophils # 4.6 K/mcL (1.6-8.9); Red Cell Distribution Width 21.5 % (11.5-14.5); Segmented Neutrophils % 76.7 %
[2020-08-03 00:50] LABS: Platelet Count 75 K/mcL (140-400)
[2020-08-03 01:02] LABS: Albumin 3.7 g/dL (3.5-5.7); Albumin/Globulin Ratio 1.3 (1.1-2.2); Bilirubin,Total 3.7 mg/dL (0.3-1.0); Calcium 8.9 mg/dL (8.6-10.3); Globulin 2.8 g/dL (2.4-3.5); Potassium 4.8 mEq/L (3.5-5.1); Total Protein 6.5 g/dL (6.4-8.9)
[2020-08-03] MEDS ORDERED: Aspirin Enteric Coated 81 MG Tablet PO SCH (09:00)
[2020-08-03] MEDS: Cholecalciferol (D-3) 1,000 UNIT (25MCG) TABLET PO SCH (09:00)
[2020-08-03] MEDS: FLUoxetine 20 MG CAPSULE PO SCH (09:01)
[2020-08-03] MEDS: Isosorbide MONOnitrate (24 HR) 30 MG TAB.ER.24H PO SCH (09:02)
[2020-08-03] MEDS: Multivit/Ca/Min/Fe/FA 1 TAB TABLET PO SCH (09:02)
[2020-08-03] MEDS: Lactulose Oral Soln 20 GM/30 ML UDC PO SCH ×3 (09:03→20:20)
[2020-08-03] MEDS: Loratadine 10 MG TABLET PO SCH (09:04)
[2020-08-03] MEDS: Magnesium Oxide 400 MG TABLET PO SCH (09:06)
[2020-08-03] MEDS: lisinopriL 5 MG TABLET PO SCH (09:07)
[2020-08-03] MEDS: 0.9 % Sodium Chloride 1,000 ML IVC SCH (09:11)
[2020-08-03] MEDS: Furosemide 20 MG TABLET PO SCH (09:12)
[2020-08-03] MEDS: Insulin LISPRO 300 UNITS/3 ML VIAL SUBQ SCH ×4 (09:16→20:20)
[2020-08-04 07:11] LABS: Basophils % 0.2 %; Eosinophils % 0.3 %; Hemoglobin 6.8 g/dL (11.5-15.4); Immature Granulocytes % 0.3 % (0-4); Lymphocytes # 0.7 K/mcL (0.6-4.6); Lymphocytes % 10.9 %; Mean Corpuscular HGB Conc 32.4 g/dL (31.6-35.5); Mean Corpuscular Hemoglobin 31.6 pg (28.0-33.3); Mean Corpuscular Volume 97.7 fL (83.0-100.0); Mean Platelet Volume 11.2 fL (9.4-12.4); Monocytes # 0.6 K/mcL (0.0-1.3); Monocytes % 9.6 %; Neutrophils # 4.8 K/mcL (1.6-8.9); Red Blood Count 2.15 M/mcL (3.82-4.97); Red Cell Distribution Width 22.6 % (11.5-14.5); Segmented Neutrophils % 78.7 %; White Blood Count 6.1 K/mcL (4.3-11.1)
[2020-08-04 07:13] LABS: Platelet Count 60 K/mcL (140-400)
[2020-08-04] MEDS ORDERED: 0.9 % Sodium Chloride 250 ML IVC SCH (07:30)
[2020-08-04] MEDS: Lactulose Oral Soln 20 GM/30 ML UDC PO SCH ×3 (08:44→20:25)
[2020-08-04] MEDS: Cholecalciferol (D-3) 1,000 UNIT (25MCG) TABLET PO SCH (08:44)
[2020-08-04] MEDS: FLUoxetine 20 MG CAPSULE PO SCH (08:44)
[2020-08-04] MEDS: Multivit/Ca/Min/Fe/FA 1 TAB TABLET PO SCH (08:45)
[2020-08-04] MEDS: Isosorbide MONOnitrate (24 HR) 30 MG TAB.ER.24H PO SCH (08:45)
[2020-08-04] MEDS: Loratadine 10 MG TABLET PO SCH (08:45)
[2020-08-04] MEDS: Magnesium Oxide 400 MG TABLET PO SCH (08:45)
[2020-08-04] MEDS: Furosemide 20 MG TABLET PO SCH (08:45)
[2020-08-04] MEDS: lisinopriL 5 MG TABLET PO SCH (08:46)
[2020-08-04] MEDS: Insulin LISPRO 300 UNITS/3 ML VIAL SUBQ SCH ×4 (08:47→20:46)
[2020-08-04 09:23] LABS: Magnesium 2.5 mg/dL (1.6-2.6); Phosphorous 2.2 mg/dL (2.7-4.5); Potassium 4.9 mEq/L (3.5-5.1)
[2020-08-04 11:00] LABS: Albumin 3.5 g/dL (3.5-5.7)
[2020-08-04] MEDS: cefTRIAXone 2,000 MG in Water for inj. (sterile) 20 ML IVP SCH (11:42)
[2020-08-04 13:35] LABS: Hematocrit 24.3 % (35.3-44.9); Hemoglobin 8.1 g/dL (11.5-15.4)
[2020-08-04 19:41] LABS: Hematocrit 23.8 % (35.3-44.9); Hemoglobin 8.1 g/dL (11.5-15.4)
[2020-08-04] MEDS: Fluticasone Propionate Nasal 50 MCG/SPRAY BOTTLE NS SCH (20:25)
[2020-08-05 01:09] LABS: Basophils % 0.2 %; Eosinophils # 0.1 K/mcL (0.0-0.6); Eosinophils % 1.2 %; Hematocrit 24.1 % (35.3-44.9); Hematocrit 24.2 % (35.3-44.9); Hemoglobin 8.1 g/dL (11.5-15.4); Immature Granulocytes % 0.5 % (0-4); Lymphocytes # 0.7 K/mcL (0.6-4.6); Lymphocytes % 10.9 %; Mean Corpuscular HGB Conc 33.6 g/dL (31.6-35.5); Mean Corpuscular Hemoglobin 31.9 pg (28.0-33.3); Mean Corpuscular Volume 94.9 fL (83.0-100.0); Mean Platelet Volume 10.3 fL (9.4-12.4); Monocytes # 0.6 K/mcL (0.0-1.3); Monocytes % 9.7 %; Neutrophils # 5.1 K/mcL (1.6-8.9); Platelet Count 64 K/mcL (140-400); Red Blood Count 2.54 M/mcL (3.82-4.97); Red Cell Distribution Width 21.4 % (11.5-14.5); Segmented Neutrophils % 77.5 %; White Blood Count 6.6 K/mcL (4.3-11.1)
[2020-08-05 02:08] LABS: Calcium 8.6 mg/dL (8.6-10.3); Magnesium 2.5 mg/dL (1.6-2.6); Potassium 4.1 mEq/L (3.5-5.1)
[2020-08-05] MEDS: Isosorbide MONOnitrate (24 HR) 30 MG TAB.ER.24H PO SCH (08:04)
[2020-08-05] MEDS: FLUoxetine 20 MG CAPSULE PO SCH (08:04)
[2020-08-05] MEDS: Cholecalciferol (D-3) 1,000 UNIT (25MCG) TABLET PO SCH (08:04)
[2020-08-05] MEDS: Lactulose Oral Soln 20 GM/30 ML UDC PO SCH ×3 (08:04→22:19)
[2020-08-05] MEDS: Furosemide 20 MG TABLET PO SCH (08:05)
[2020-08-05] MEDS: Magnesium Oxide 400 MG TABLET PO SCH (08:05)
[2020-08-05] MEDS: lisinopriL 5 MG TABLET PO SCH (08:05)
[2020-08-05] MEDS: Multivit/Ca/Min/Fe/FA 1 TAB TABLET PO SCH (08:05)
[2020-08-05] MEDS: Loratadine 10 MG TABLET PO SCH (08:06)
[2020-08-05] MEDS: Insulin LISPRO 300 UNITS/3 ML VIAL SUBQ SCH ×4 (08:08→22:19)
[2020-08-05] MEDS: cefTRIAXone 2,000 MG in Water for inj. (sterile) 20 ML IVP SCH (09:50)
[2020-08-05 11:59] LABS: INR 1.8; Prothrombin Time 20.2 Seconds (9.4-12.1)
[2020-08-05] MEDS: Fluticasone Propionate Nasal 50 MCG/SPRAY BOTTLE NS SCH (22:18)
[2020-08-06 00:43] LABS: Basophils % 0.2 %; Immature Granulocytes % 0.3 % (0-4); Monocytes % 10.2 %
[2020-08-06 00:45] LABS: Eosinophils # 0.1 K/mcL (0.0-0.6); Eosinophils % 1.2 %; Hematocrit 23.2 % (35.3-44.9); Hemoglobin 8.1 g/dL (11.5-15.4); Immature Platelets 2.8 % (1.1-6.1); Lymphocytes # 0.6 K/mcL (0.6-4.6); Lymphocytes % 10.2 %; Mean Corpuscular HGB Conc 34.9 g/dL (31.6-35.5); Mean Corpuscular Hemoglobin 32.8 pg (28.0-33.3); Mean Corpuscular Volume 93.9 fL (83.0-100.0); Mean Platelet Volume 10.6 fL (9.4-12.4); Monocytes # 0.6 K/mcL (0.0-1.3); Neutrophils # 4.6 K/mcL (1.6-8.9); Red Blood Count 2.47 M/mcL (3.82-4.97); Red Cell Distribution Width 21.1 % (11.5-14.5); Segmented Neutrophils % 77.9 %; White Blood Count 5.9 K/mcL (4.3-11.1)
[2020-08-06 00:46] LABS: Platelet Count 67 K/mcL (140-400)
[2020-08-06 00:57] LABS: Albumin 3.2 g/dL (3.5-5.7); Albumin/Globulin Ratio 1.2 (1.1-2.2); Bilirubin,Total 2.6 mg/dL (0.3-1.0); Calcium 8.7 mg/dL (8.6-10.3); Globulin 2.6 g/dL (2.4-3.5); Magnesium 2.3 mg/dL (1.6-2.6); Phosphorous 3.3 mg/dL (2.7-4.5); Potassium 3.8 mEq/L (3.5-5.1); Total Protein 5.8 g/dL (6.4-8.9)
[2020-08-06] MEDS: Insulin LISPRO 300 UNITS/3 ML VIAL SUBQ SCH (09:26)
[2020-08-06] MEDS: Isosorbide MONOnitrate (24 HR) 30 MG TAB.ER.24H PO SCH (09:27)
[2020-08-06] MEDS: Lactulose Oral Soln 20 GM/30 ML UDC PO SCH (09:27)
[2020-08-06] MEDS: Loratadine 10 MG TABLET PO SCH (09:27)
[2020-08-06] MEDS: Magnesium Oxide 400 MG TABLET PO SCH (09:27)
[2020-08-06] MEDS: Furosemide 20 MG TABLET PO SCH (09:27)
[2020-08-06] MEDS: Cholecalciferol (D-3) 1,000 UNIT (25MCG) TABLET PO SCH (09:28)
[2020-08-06] MEDS: Multivit/Ca/Min/Fe/FA 1 TAB TABLET PO SCH (09:28)
[2020-08-06] MEDS: FLUoxetine 20 MG CAPSULE PO SCH (09:28)
[2020-08-06] MEDS: lisinopriL 5 MG TABLET PO SCH (09:28)
[2020-08-06 11:14] VITALS: BP 129/65
== END 2020-08-06 12:17 | DRG 441 ==
LOC: EMEROOARM 16:28 → 3BNU 16:28 → SUATTDRO 19:54 → 3BNU 20:33
PROVIDERS: ADMIT Internal Medicine; ATTEND Internal Medicine

== ENCOUNTER 2020-08-08 20:13 | Inpatient (IN) ==
[2020-08-08 22:09] LABS: Basophils % 0.4 %; Eosinophils # 0.1 K/mcL (0.0-0.6); Eosinophils % 1.1 %; Hemoglobin 8.5 g/dL (11.5-15.4); Immature Granulocytes % 0.2 % (0-4); Lymphocytes # 0.6 K/mcL (0.6-4.6); Lymphocytes % 11.7 %; Mean Corpuscular Volume 94.7 fL (83.0-100.0); Mean Platelet Volume 10.1 fL (9.4-12.4); Monocytes # 0.6 K/mcL (0.0-1.3); Monocytes % 11.3 %; Platelet Count 75 K/mcL (140-400); Red Blood Count 2.43 M/mcL (3.82-4.97); Red Cell Distribution Width 21.6 % (11.5-14.5); Segmented Neutrophils % 75.3 %; White Blood Count 5.3 K/mcL (4.3-11.1)
[2020-08-08 22:14] LABS: INR 1.6; Prothrombin Time 18.1 Seconds (9.4-12.1)
[2020-08-08 22:20] LABS: Bacteria,Urine Moderate per hpf (None-Few); Bilirubin,Urine Negative (Negative); Blood,Urine Moderate (Negative); Clarity,Urine Turbid (Clear); Color,Urine Yellow (Yellow); Glucose,Urine (UA) Normal (Normal); Ketones,Urine Negative (Negative); Leukocyte Esterase,Urine Small (Negative); Mucus,Urine Few per lpf (None-Few); Nitrite,Urine Positive (Negative); PH,Urine 5.5 pH Units (5.0-8.0); Protein,Urine 70 mg/dL (Neg-Trace); RBC,Urine 0-3 per hpf (0-3); Specific Gravity,Urine 1.018 (1.010-1.025); Squamous Epithelial Cell,Urine Few per hpf (None-Few); Urobilinogen,Urine >=8.0 mg/dL (Normal); WBC,Urine 30-50 per hpf (0-3)
[2020-08-08 22:29] LABS: Albumin 3.2 g/dL (3.5-5.7); Albumin/Globulin Ratio 1.1 (1.1-2.2); Bilirubin,Direct 1.8 mg/dL (0.0-0.2); Bilirubin,Indirect 4.4 mg/dL (0.0-1.0); Bilirubin,Total 6.2 mg/dL (0.3-1.0); Calcium 8.9 mg/dL (8.6-10.3); Globulin 2.8 g/dL (2.4-3.5); Potassium 4.4 mEq/L (3.5-5.1); Troponin I 0.03 ng/mL (< 0.04)
[2020-08-08] MEDS ORDERED: Piperacillin/Tazobactam 3.375 GM in 0.9 % Sodium Chloride Mini Bag 100 ML IVPB ONE (22:46)
[2020-08-08] MEDS ORDERED: Lactulose 200 GM, Sodium Chloride IRRigation 700 ML RC ONE (22:47)
[2020-08-08] MEDS ORDERED: Piperacillin/Tazobactam 3.375 GM VIAL ONE (22:50)
[2020-08-08] MEDS ORDERED: Acetaminophen 325 MG TABLET PO PRN (23:39)
[2020-08-08] MEDS ORDERED: Ondansetron 4 MG/2 ML VIAL IVP PRN (23:39)
[2020-08-08] MEDS ORDERED: Naloxone 0.4 MG/ML INJ IVP PRN (23:39)
[2020-08-08] MEDS ORDERED: *HR* Dextrose 50 % in Water (Vial) 50 ML VIAL IVP PRN (23:42)
[2020-08-08] MEDS ORDERED: D5% in Water 1,000 ML IVC PRN (23:42)
[2020-08-08] MEDS ORDERED: Dextrose Gel 15 GM/37.5 ML TUBE PO PRN ×2 (23:42)
[2020-08-09] MEDS: 0.9 % Sodium Chloride 1,000 ML IVC SCH ×2 (01:33→15:14)
[2020-08-09] MEDS ORDERED: Bisacodyl 10 MG RECTAL SUPPOSITORY RC PRN (02:01)
[2020-08-09] MEDS ORDERED: Artificial Tears SOLN 15 ML BOTTLE BOTH EYES PRN (02:01)
[2020-08-09] MEDS ORDERED: polyethylene glycoL 3350 17 GM POWD.PACK PO PRN (02:01)
[2020-08-09] MEDS: Insulin LISPRO 300 UNITS/3 ML VIAL SUBQ SCH ×4 (02:19→16:32)
[2020-08-09] MEDS: Isosorbide MONOnitrate (24 HR) 30 MG TAB.ER.24H PO SCH (08:03)
[2020-08-09] MEDS: Piperacillin/Tazobactam 3.375 GM in 0.9 % Sodium Chloride Mini Bag 100 ML IVPB SCH ×2 (08:04→16:31)
[2020-08-09] MEDS: Magnesium Oxide 400 MG TABLET PO SCH (08:04)
[2020-08-09] MEDS: Aspirin Enteric Coated 81 MG Tablet PO SCH (08:04)
[2020-08-09] MEDS: Lactulose Oral Soln 20 GM/30 ML UDC PO SCH ×3 (08:08→20:24)
[2020-08-09 08:21] LABS: Albumin 3.1 g/dL (3.5-5.7); Albumin/Globulin Ratio 1.1 (1.1-2.2); Bilirubin,Total 6.7 mg/dL (0.3-1.0); Globulin 2.7 g/dL (2.4-3.5); Potassium 4.3 mEq/L (3.5-5.1); Total Protein 5.8 g/dL (6.4-8.9)
[2020-08-09 09:22] LABS: Basophils % 0.2 %; Eosinophils % 0.5 %; Hematocrit 26.2 % (35.3-44.9); Hemoglobin 8.7 g/dL (11.5-15.4); Immature Granulocytes % 0.5 % (0-4); Lymphocytes # 0.6 K/mcL (0.6-4.6); Lymphocytes % 9.7 %; Mean Corpuscular HGB Conc 33.2 g/dL (31.6-35.5); Mean Corpuscular Hemoglobin 31.8 pg (28.0-33.3); Mean Corpuscular Volume 95.6 fL (83.0-100.0); Mean Platelet Volume 11.1 fL (9.4-12.4); Monocytes # 0.7 K/mcL (0.0-1.3); Monocytes % 11.2 %; Neutrophils # 4.6 K/mcL (1.6-8.9); Red Blood Count 2.74 M/mcL (3.82-4.97); Red Cell Distribution Width 22.5 % (11.5-14.5); Segmented Neutrophils % 77.9 %; White Blood Count 5.9 K/mcL (4.3-11.1)
[2020-08-09 09:23] LABS: Platelet Count 76 K/mcL (140-400)
[2020-08-09] MEDS ORDERED: Insulin LISPRO 300 UNITS/3 ML VIAL SUBQ SCH (21:00)
[2020-08-09] MEDS ORDERED: Melatonin 3 MG TABLET PO SCH (21:00)
[2020-08-10] MEDS: Fluticasone Propionate Nasal 50 MCG/SPRAY BOTTLE NS SCH ×2 (00:13→21:13)
[2020-08-10] MEDS: Piperacillin/Tazobactam 3.375 GM in 0.9 % Sodium Chloride Mini Bag 100 ML IVPB SCH ×4 (00:14→23:58)
[2020-08-10] MEDS: Isosorbide MONOnitrate (24 HR) 30 MG TAB.ER.24H PO SCH (08:10)
[2020-08-10] MEDS: Magnesium Oxide 400 MG TABLET PO SCH (08:11)
[2020-08-10] MEDS: Aspirin Enteric Coated 81 MG Tablet PO SCH (08:11)
[2020-08-10] MEDS: Lactulose Oral Soln 20 GM/30 ML UDC PO SCH ×3 (08:11→21:13)
[2020-08-10] MEDS: Insulin LISPRO 300 UNITS/3 ML VIAL SUBQ SCH ×3 (08:12→16:54)
[2020-08-10] MEDS ORDERED: Insulin LISPRO 300 UNITS/3 ML VIAL SUBQ SCH (21:00)
[2020-08-11] MEDS: Piperacillin/Tazobactam 3.375 GM in 0.9 % Sodium Chloride Mini Bag 100 ML IVPB SCH ×2 (08:10→15:31)
[2020-08-11] MEDS: Magnesium Oxide 400 MG TABLET PO SCH (08:12)
[2020-08-11] MEDS ORDERED: Insulin DETEMIR 100 UNIT/ML X5UNITS SUBQ ONE (08:12)
[2020-08-11] MEDS: Lactulose Oral Soln 20 GM/30 ML UDC PO SCH ×2 (08:13→15:31)
[2020-08-11] MEDS: Isosorbide MONOnitrate (24 HR) 30 MG TAB.ER.24H PO SCH (08:13)
[2020-08-11] MEDS: Insulin LISPRO 300 UNITS/3 ML VIAL SUBQ SCH ×3 (08:23→18:04)
[2020-08-11] MEDS ORDERED: Insulin DETEMIR 100 UNIT/ML X5UNITS SUBQ SCH ×2 (21:00)
[2020-08-11] MEDS ORDERED: Insulin LISPRO 300 UNITS/3 ML VIAL SUBQ SCH (21:00)
[2020-08-12] MEDS: Lactulose Oral Soln 20 GM/30 ML UDC PO SCH ×3 (00:20→16:40)
[2020-08-12] MEDS: Fluticasone Propionate Nasal 50 MCG/SPRAY BOTTLE NS SCH (00:49)
[2020-08-12] MEDS ORDERED: Insulin DETEMIR 100 UNIT/ML X5UNITS SUBQ ONE (08:14)
[2020-08-12] MEDS ORDERED: Insulin LISPRO 300 UNITS/3 ML VIAL SUBQ SCH ×3 (08:15→17:00)
[2020-08-12] MEDS: Magnesium Oxide 400 MG TABLET PO SCH (09:14)
[2020-08-12] MEDS: Isosorbide MONOnitrate (24 HR) 30 MG TAB.ER.24H PO SCH (09:15)
[2020-08-12] MEDS: Insulin LISPRO 300 UNITS/3 ML VIAL SUBQ SCH ×2 (09:19→11:10)
[2020-08-12 14:26] VITALS: BP 126/66
== END 2020-08-12 19:23 | DRG 394 ==
LOC: EMEROOARM 20:13 → 3ANU 20:13
PROVIDERS: ADMIT Internal Medicine; ATTEND Internal Medicine